=== PATIENT | male | born 1950 | race Caucasian/White ===

== ENCOUNTER 2016-10-30 20:58 | Inpatient (IN) | payer MEDICARE, OTHER ==
--- NOTE | 2016-10-30 22:05 | PDOC ---
Attending Attestation - HPI HPI: 10/30/16 22:47 Patient is a 66 y/o M with a PMHx of diabetes, hepatitis C, liver CA, IV drug use (on Methadone) presents to the ED via EMS s/p fall. Patient reports he was at home when he had a mechanical fall. Neighbor heard him crying for help and called 911. Patient reports right hip pain. He reports for the past 3 days he has been ambulating with his walker and walking to his Methadone clinic. Patient is a poor historian. He does not know where his recent hip surgery was done. He does not know the name of his PCP. <Ladan Gabriel Corrie - Last Filed: 10/30/16 22:46> - Resident Resident Name: Moni Carrasquillo - ED Attending Attestation I have performed the following: I have examined & evaluated the patient, The case was reviewed & discussed with the resident, I agree w/resident's findings & plan, Exceptions are as noted - Physicial Exam PE: GENERAL: Awake, alert, oriented, in no acute distress. +Coarse tremors to the hands B/L. Cachectic. HEAD: No signs of trauma EYES: PERRLA, EOMI, sclera anicteric, conjunctiva clear ENT: Auricles normal inspection, hearing grossly normal, nares patent, oropharynx clear without exudates. Dry mucosa NECK: Normal ROM, supple, no lymphadenopathy, JVD, or masses LUNGS: Breath sounds equal, clear to auscultation bilaterally. No wheezes, and no crackles HEART: Regular rate and rhythm, normal S1 and S2, no murmurs, rubs or gallops ABDOMEN: Soft, nontender, normoactive bowel sounds. No guarding, no rebound. No masses EXTREMITIES: R hip with well-healed lateral surgical scar. L foot s/p 4th toe amputation with erythema to the dorsum, open lesion with scant purulent drainage. Plantar surface with linear area of thickened skin and central opening , no drainage. No clubbing or cyanosis. No cords, tenderness. NEUROLOGICAL: Cranial nerves II through XII grossly intact. Moving all extremities. SKIN: Warm, Dry, normal turgor, no rashes. +Sacral decubitus ulcer with surrounding cellulitis. - Medical Decision Making Patient is extremely poor historian. He was able to tell where his methadone clinic is, but could not recall when/where he had hip and foot surgery, and could not name his primary care physician. He was getting his methadone for the past few days since leaving facility where he was staying (?? rehab facility possibly?), but missed his dose today. He appears cachectic, malnourished, chronically ill. He has cellulitis and drainage from the surgical site on the L 4th toe (which is apparently an older surgery). It is apparent that he did not have any wound care, as he was wearing dirty socks on arrival in ED. He also complains of severe pain and inability to lay on his back, likely due to decubitus ulcer. Will admit for IV abx for the skin infections. He will likely need SW evaluation, as he presented with hypoglycemia, likely has not been eating at home. Unclear what his home situation is or where he has insight into his own illness. Contacted [facility]- patient sees Dr. [facility] in [facility]. His last admission there was in July, likely not his most recent hospital admission, but unable to determine where else he may have been. <Ce Fagan - Last Filed: 10/31/16 01:28>
--- NOTE | 2016-10-30 22:29 | PDOC ---
History of Present Illness - General Chief Complaint: Pain Stated Complaint: FALL Time Seen by Provider: 10/30/16 21:14 History Source: Patient Exam Limitations: Clinical Condition (poor historian) - History of Present Illness Initial Comments: 66yo M with PMH of IDDM, hep C, liver ca, IVDA on methadone, presents c/o sacral pain s/p fall. Pt is a poor historian. Pt reports he fell twice today. He felt lightheaded/dizzy prior to falling both times. Pt lives alone and stated his aid did not come today. Pt reports non-radiating sacral pain, rated 7/10. He did not hit his head. Pt denies LOC. Pt reports he is s/p Right hip surgery 10 days ago (hospital where surgery occurred and type of surgery are not recalled). Pt missed his methadone today. PCP: Dr. Alexei Borges of [facility] 10/30/16 22:22 Associated Symptoms: denies: chest pain, cough, diaphoresis, fever/chills, headaches, nausea/vomiting, rash, shortness of breath, syncope Past History - Past Medical History Allergies/Adverse Reactions: Allergies Allergy/AdvReac Type Severity Reaction Status Date / Time chlorpromazine HCl Allergy Verified 10/30/16 21:09 [From Thorazine] Home Medications: Ambulatory Orders Clonazepam [Klonopin -] 0.5 mg PO BID 02/24/15 Insulin Aspart [Novolog] 0 unit SQ DAILY 02/24/15 Insulin Glargine,Hum.rec.anlog [Lantus (nf)] 10 units SQ AM 02/24/15 Cancer: Yes (liver) Diabetes: Yes (Neuropathy) Liver Disease: Yes (Hep C) Psychiatric Problems: Yes - Surgical History Appendectomy: Yes Orthopedic Surgery: Yes (Right hip surgery) - Psycho/Social/Smoking Cessation Hx Suicidal Ideation: No Smoking History: Current every day smoker Have you smoked in the past 12 months: Yes Number of Cigarettes Smoked Daily: 10 Information on smoking cessation initiated: No Hx Alcohol Use: No Drug/Substance Use Hx: No Substance Use Type: None Hx Substance Use Treatment: Yes Review of Systems - Review of Systems Able to Perform ROS?: Yes Is the patient limited Hebrew proficient: No Constitutional: No: Chills, Diaphoresis, Fever HEENTM: No: Recent change in vision, Ear Pain, Nose Pain, Nose Congestion, Throat Pain Respiratory: No: Cough, Shortness of Breath, Stridor, Wheezing, Hemoptysis Cardiac (ROS): No: Chest Pain, Edema, Irregular Heart Rate, Lightheadedness, Palpitations, Syncope, Chest Tightness ABD/GI: No: Abdominal Distended, Nausea, Rectal Bleeding, Vomiting : Yes: Incontinence (of bladder and bowel x 3-4 days). No: Dysuria, Hematuria Musculoskeletal: Yes: Back Pain (sacral pain) Integumentary: No: Bruising, Erythema, Rash Neurological: Yes: Tremors, Dizziness. No: Headache *Physical Exam - Vital Signs Last Vital Signs Temp Pulse Resp BP Pulse Ox 99.5 F 92 H 20 128/76 94 L 10/30/16 21:10 10/30/16 21:10 10/30/16 21:10 10/30/16 21:10 10/30/16 21:10 - Physical Exam General Appearance: Yes: Nourished, Appropriately Dressed, Disheveled HEENT: positive: EOMI, Normal Voice. negative: Pale Conjunctivae, Scleral Icterus (R), Scleral Icterus (L), Nasal Congestion, Rhinorrhea Neck: positive: Trachea midline, Supple Respiratory/Chest: positive: Lungs Clear, Normal Breath Sounds. negative: Respiratory Distress, Accessory Muscle Use Cardiovascular: positive: Regular Rhythm, Regular Rate, S1, S2. negative: Murmur Gastrointestinal/Abdominal: positive: Soft. negative: Distended, Guarding, Rebound, Tenderness Extremity: negative: Swelling, Calf Tenderness, Erythema Integumentary: positive: Dry, Warm, Other (Sacral decub [id number] with red tissue at periphery and slough in the middle. Left foot: opening at tip of 1st toe and skin breakdown at 4th toe amputation incision noted with purulent drainage.) Neurologic: positive: Alert, Disoriented. negative: Facial Droop, Numbness ED Treatment Course - LABORATORY CBC & Chemistry Diagram: 10/30/16 23:09 10/30/16 23:09 Medical Decision Making - Medical Decision Making 66yo M with PMH of IDDM, hep C, liver ca, IVDA on methadone, presents c/o sacral pain s/p fall. Pt is a poor historian. Pt presents with tremors likely 2/2 hx of hep C/encephalopathy and/or withdrawal as methadone was missed today. Several areas of skin breakdown noted on exam. Wound cultures sent for sacral decub and for Left foot 4th toe amputation incision site. Vancomycin and Zosyn given empirically Xray of Left foot CBC with diff, CMP, ammonia, blood cultures UA, urine cultures f/u wound cultures EKG 10/30/16 23:07 10/30/16 23:49 CBC with diff -> leukocytosis CMP -> elevated Cr and hypoglycemia (36) -> D50 IVpush ammonia -> wnl Pt should be admitted for cellulitis, hypoglycemia, infected sacral decub and infected surgical incision. [facility] 10/31/16 00:44 Pt appears more alert and oriented after D50. F/U poc glucose ordered. He c/o symptoms of withdrawal and pain. Morphine 4mg IVpush ordered. Pts of [facility] are admitted by Dr. Hung (not [facility]). Dr. Hung was contacted and accepted the adm. *DC/Admit/Observation/Transfer Diagnosis at time of Disposition: Cellulitis, Hypoglycemia - Discharge Dispostion Condition at time of disposition: Guarded Admit: Yes
[2016-10-30] MEDS ORDERED: PIPERACILLIN/TAZOB 3.375 GM 3.375 GM in DEXTROSE 5%-WATER - 50 ML IVPB ONE (22:47)
[2016-10-30] MEDS ORDERED: VANCOMYCIN 1,000 MG in DEXTROSE 5%-WATER - 250 ML IVPB ONE (22:47)
[2016-10-30 23:24] LABS: BASOPHIL 0.8 % (0-2.0); MCH 26.9 pg (25.7-33.7); MCHC 32.5 g/dl (32.0-35.9); MEAN CELL VOLUME 82.7 fl (80-96); MEAN PLT VOLUME 9.5 fl (7.5-11.1); NEUTROPHILS 78.2 % (42.8-82.8); PLATELET COUNT 189 K/MM3 (134-434); RDW 18.6 % (11.9-15.9); WHITE BLOOD COUNT 19.5 K/mm3 (4.0-10.0)
[2016-10-30 23:46] LABS: ALBUMIN 1.9 g/dl (3.4-5.0); ALK PHOS 693 U/L (45-117); ANION GAP 11 (8-16); BILIRUBIN,TOTAL 0.6 mg/dL (0.2-1.0); CALCIUM 8.6 mg/dL (8.5-10.1); CO2 29 mmol/L (21-32); CREATININE 1.7 mg/dL (0.7-1.3); SGOT/AST 104 U/L (15-37); SGPT/ALT 65 U/L (12-78); TOT PROT 7.1 g/dl (6.4-8.2)
[2016-10-30 23:47] LABS: GLUCOSE,RANDOM 36 mg/dL (74-106)
[2016-10-30] MEDS ORDERED: DEXTROSE 50%-WATER - 25 GM/50 ML VIAL IVPUSH ONE (23:47)
[2016-10-30] MEDS ORDERED: DEXTROSE 50%-WATER - 25 GM/50 ML VIAL ONE (23:51)
[2016-10-31] MEDS ORDERED: PIPERACILLIN/TAZOB 3.375 GM 50 ML IVPB ONE (00:21)
[2016-10-31] MEDS ORDERED: VANCOMYCIN 1 GRAM (PRE-DOCKED) 250 ML IVPB ONE (00:22)
[2016-10-31] MEDS ORDERED: morphine CARPU-JECT 4 MG/1 ML DISP.SYRIN IVPUSH ONE (00:44)
[2016-10-31] MEDS ORDERED: morphine CARPU-JECT 4 MG/1 ML DISP.SYRIN ONE (01:01)
[2016-10-31 01:33] LABS: URINE APPEARANCE SLCLOUDY; URINE BILIRUBIN NEGATIVE (NEGATIVE); URINE BLOOD 3+ (NEGATIVE); URINE COLOR YELLOW; URINE GLUCOSE (UA) NEGATIVE (NEGATIVE); URINE KETONE NEGATIVE (NEGATIVE); URINE NITRITE NEGATIVE (NEGATIVE); URINE UROBILINOGEN NEGATIVE mg/dL (0.2-1.0)
[2016-10-31 01:34] LABS: URINE LEUK ESTERASE 3+ (NEGATIVE); URINE PROTEIN 2+ (NEGATIVE)
[2016-10-31 01:36] LABS: URINE HYALINE CAST 1 /lpf; URINE RBC 7 /hpf (0-3); URINE WBC 2 /hpf (3-5)
[2016-10-31 04:34] VITALS: BMI 18.0
[2016-10-31] MEDS: INSULIN SLIDING SCALE (NOVOLOG) 1 VIAL SQ SCH ×4 (06:51→21:47)
[2016-10-31 08:53] LABS: CHOLESTEROL 122 mg/dL (50-200)
--- NOTE | 2016-10-31 09:23 | HP ---
Admitting History and Physical - Primary Care Physician PCP: Lani Hung - Admission Chief Complaint: ABD PAIN WITH HEMATUREA/BACK PAIN/WEAKNESS/S-P FALL WITH HYPOGLYCEMIA History of Present Illness: Patient is a 66 y/o M with a PMHx of diabetes, hepatitis C, liver CA, IV drug use (on Methadone) presents to the ED via EMS s/p fall. Patient reports he was at home when he had a mechanical fall. Neighbor heard him crying for help and called 911. Patient reports right hip pain. He reports for the past 3 days he has been ambulating with his walker and walking to his Methadone clinic. Patient is a poor historian. He does not know where his recent hip surgery was done. He does not History Source: Patient Limitations to Obtaining History: Clinical Condition - Past Medical History Pulmonary: Yes: Asthma Gastrointestinal: Yes: GERD Hepatobiliary: Yes: Hepatitis C Endocrine: Yes: Diabetes Mellitus - Smoking History Smoking history: Current every day smoker Have you smoked in the past 12 months: Yes Aproximately how many cigarettes per day: 10 - Alcohol/Substance Use Hx Alcohol Use: No Home Medications - Allergies Allergies/Adverse Reactions: Allergies Allergy/AdvReac Type Severity Reaction Status Date / Time chlorpromazine HCl Allergy Verified 10/30/16 21:09 [From Thorazine] - Home Medications Home Medications: Ambulatory Orders Clonazepam [Klonopin -] 0.5 mg PO BID 02/24/15 Insulin Aspart [Novolog] 0 unit SQ DAILY 02/24/15 Insulin Glargine,Hum.rec.anlog [Lantus (nf)] 10 units SQ AM 02/24/15 Review of Systems - Review of Systems Constitutional: reports: Weakness Eyes: reports: No Symptoms HENT: reports: No Symptoms Neck: reports: No Symptoms Cardiovascular: reports: No Symptoms Respiratory: reports: No Symptoms Genitourinary: reports: Hematuria Musculoskeletal: reports: Back Pain, Muscle Weakness Integumentary: reports: Rash Neurological: reports: Pre-Existing Deficit Endocrine: reports: Other Hematology/Lymphatic: reports: No Symptoms Psychiatric: reports: Anxiety Physical Examination Vital Signs: Vital Signs Temperature 98.3 F 10/31/16 01:08 Pulse Rate 74 10/31/16 01:59 Respiratory Rate 15 10/31/16 01:59 Blood Pressure 116/54 10/31/16 01:59 O2 Sat by Pulse Oximetry (%) 98 10/31/16 01:59 Constitutional: Yes: Mild Distress Eyes: Yes: WNL HENT: Yes: WNL Neck: Yes: WNL Cardiovascular: Yes: WNL Respiratory: Yes: WNL Gastrointestinal: Yes: Tenderness Renal/: Yes: Other Musculoskeletal: Yes: Back Pain, Muscle Weakness Extremities: Yes: WNL Edema: No Peripheral Pulses WNL: Yes Integumentary: Yes: Rash, Skin Tear Wound/Incision: Yes: Dressing Dry and Intact Neurological: Yes: Pre-Existing Deficit ...Motor Strength: LLE, RLE Psychiatric: Yes: Other Problem List - Problems (1) Cellulitis Code(s): L03.90 - CELLULITIS, UNSPECIFIED Qualifiers: Site of cellulitis: extremity Site of cellulitis of extremity: lower extremity (2) Hypoglycemia Code(s): E16.2 - HYPOGLYCEMIA, UNSPECIFIED (3) Dyspnea Code(s): R06.00 - DYSPNEA, UNSPECIFIED Qualifiers: Dyspnea type: unspecified Qualified Code(s): R06.00 - Dyspnea, unspecified (4) DMII (diabetes mellitus, type 2) Code(s): E11.9 - TYPE 2 DIABETES MELLITUS WITHOUT COMPLICATIONS Qualifiers: Diabetes mellitus complication status: with hypoglycemia (5) Hepatitis C Code(s): B19.20 - UNSPECIFIED VIRAL HEPATITIS C WITHOUT HEPATIC COMA Qualifiers: Viral hepatitis chronicity: chronic (6) Methadone dependence Code(s): F11.20 - OPIOID DEPENDENCE, UNCOMPLICATED Assessment/Plan CELLULITIS ON ABX ID CONSULT HEP C WILL NEED F/U OUTPATIENT WITH GASTROENTEROLOGY SONO BLADDER/RENAL FOR HEMATUREA METHADONE RESTARTED VERIFIED WITH METHADONE CLINIC 70MG DAILY LABS REVIEWED LEUKOCYTOSIS
--- NOTE | 2016-10-31 10:17 | CON.ID ---
Consult Consult Specialty:: INFECTIOUS DISEASE Reason for Consultation:: Leukocytosis - History of Present Illness Chief Complaint: weakness and generalized pain History of Present Illness: 66 y.o. male with Hepatitis C , ?Liver CA, IVDA on methadone, DM, hx of falls,s/ p Rt hip surgery and Lt 4th toe amputation presenting with weakness and pain, noted to have leukocytosis. He is a poor historian and can not provide details of his medical history and when surgeries were done. States he lives alone in an apartment. Currently with lower back pain. Denies fever/chills (temp mildly elevated in ER), abdominal pain, n/v, or diarrhea. States he has recently had urinary incontinence but no dysuria/hesitation. - History Source History Provided By: Patient Limitations to Obtaining History: Other (poor historian) - Past Medical History Pulmonary: Yes: Asthma Gastrointestinal: Yes: GERD Hepatobiliary: Yes: Hepatitis C Infectious Disease: Yes: Other (hepatitis C) Endocrine: Yes: Diabetes Mellitus - Past Surgical History Additional Surgical History: Rt hip surgery, Lt 4th toe amputation, Lt ankle fx with hardware - Alcohol/Substance Use Hx Alcohol Use: No - Smoking History Smoking history: Current every day smoker Have you smoked in the past 12 months: Yes Aproximately how many cigarettes per day: 10 - Social History Usual Living Arrangement: Alone Home Medications - Allergies Allergies/Adverse Reactions: Allergies Allergy/AdvReac Type Severity Reaction Status Date / Time chlorpromazine HCl Allergy Verified 10/30/16 21:09 [From Thorazine] - Home Medications Home Medications: Ambulatory Orders Clonazepam [Klonopin -] 0.5 mg PO BID 02/24/15 Insulin Aspart [Novolog] 0 unit SQ DAILY 02/24/15 Insulin Glargine,Hum.rec.anlog [Lantus (nf)] 10 units SQ AM 02/24/15 Review of Systems - Review of Systems Constitutional: reports: Weakness Eyes: reports: No Symptoms HENT: reports: No Symptoms Neck: reports: No Symptoms Cardiovascular: reports: No Symptoms Respiratory: reports: No Symptoms Gastrointestinal: reports: No Symptoms Genitourinary: reports: Other (occasional incontinence) Musculoskeletal: reports: Other (sacral pain) Integumentary: reports: Other (Sacral DU with erythema, no discharge) Neurological: reports: Weakness Hematology/Lymphatic: reports: No Symptoms Psychiatric: reports: No Symptoms Pain Intensity: 7 Physical Exam Vital Signs: Vital Signs Temperature 98.3 F 10/31/16 01:08 Pulse Rate 74 10/31/16 01:59 Respiratory Rate 15 10/31/16 01:59 Blood Pressure 116/54 10/31/16 01:59 O2 Sat by Pulse Oximetry (%) 98 10/31/16 01:59 Constitutional: Yes: Mild Distress, Other HENT: Yes: WNL Neck: Yes: WNL Cardiovascular: Yes: Regular Rate and Rhythm Respiratory: Yes: CTA Bilaterally Gastrointestinal: Yes: Normal Bowel Sounds, Soft Musculoskeletal: Yes: Back Pain (lower back) Integumentary: Yes: Other (Sacral DU approx 4x3 cm with surrounding erythema, pain) Wound/Incision: Yes: Other (Lt 4th toe amputation wound with mild discharge/ erythema Rt hips healed surgical wound, LLE scar) Neurological: Yes: Alert Psychiatric: Yes: WNL Labs: CBC, BMP 10/30/16 23:09 10/30/16 23:09 Imaging - Results X-ray: Report Reviewed (Lt foot) Problem List - Problems (1) Cellulitis Code(s): L03.90 - CELLULITIS, UNSPECIFIED Qualifiers: Site of cellulitis: extremity Site of cellulitis of extremity: lower extremity (2) DMII (diabetes mellitus, type 2) Code(s): E11.9 - TYPE 2 DIABETES MELLITUS WITHOUT COMPLICATIONS Qualifiers: Diabetes mellitus complication status: with hypoglycemia (3) Hepatitis C Code(s): B19.20 - UNSPECIFIED VIRAL HEPATITIS C WITHOUT HEPATIC COMA Qualifiers: Viral hepatitis chronicity: chronic (4) Methadone dependence Code(s): F11.20 - OPIOID DEPENDENCE, UNCOMPLICATED (5) Leukocytosis Code(s): D72.829 - ELEVATED WHITE BLOOD CELL COUNT, UNSPECIFIED Assessment/Plan Sacral DU with cellulitis Lt 4th toe amputation site possibly infected r/o OM Renal insufficiency Groin candidiasis - suggest continue Zosyn and IV Vancomycin empirically, Nystatin powder BID to groin - monitor wbc trend, renal function - f/u blood, urine, wound culture results - consider sacral xray
[2016-10-31] MEDS ORDERED: METHADONE HCL 40 MG DISPERSABLE TABLET ONE (11:23)
[2016-10-31] MEDS ORDERED: METHADONE HCL 10 MG TABLET ONE (11:23)
[2016-10-31] MEDS ORDERED: METHADONE 30 MG, METHADONE 40 MG PO ONE ×2 (11:30)
[2016-10-31] MEDS: ACETAMINOPHEN 325 MG TABLET (FP) PO PRN (12:59)
[2016-10-31] MEDS: clonazePAM 0.5 MG TABLET PO PRN (13:00)
[2016-10-31] MEDS ORDERED: PT OWN MED DRAWER 7, Y5N ONE ×2 (13:15→21:17)
[2016-10-31] MEDS: BACITRACIN 15 GM TUBE TOPICAL OINTMENT TP SCH (13:27)
[2016-10-31] MEDS: VANCOMYCIN 1 GRAM (PRE-DOCKED) 250 ML IVPB SCH ×2 (13:27→21:45)
[2016-10-31] MEDS: PIPERACILLIN/TAZOB 2.25 GM 2.25 GM in DEXTROSE 5%-WATER - 50 ML IVPB SCH ×2 (15:57→18:42)
[2016-10-31] MEDS ORDERED: INSULIN (NOVOLOG) ASPART 100 UNITS/ML 10ML VIAL ONE ×2 (16:53→21:18)
[2016-10-31] MEDS ORDERED: INSULIN (NOVOLOG) ASPART 100 UNITS/ML 10ML VIAL SQ ONE (17:15)
[2016-10-31 17:57] LABS: ALBUMIN 1.5 g/dl (3.4-5.0); ALK PHOS 586 U/L (45-117); ANION GAP 9 (8-16); BILIRUBIN,TOTAL 0.7 mg/dL (0.2-1.0); CALCIUM 7.5 mg/dL (8.5-10.1); CO2 28 mmol/L (21-32); CREATININE 1.8 mg/dL (0.7-1.3); SGOT/AST 111 U/L (15-37); SGPT/ALT 57 U/L (12-78); TOT PROT 5.7 g/dl (6.4-8.2)
[2016-10-31 18:06] LABS: GLUCOSE,RANDOM 393 mg/dL (74-106)
[2016-10-31] MEDS ORDERED: DEXTROSE 5%-WATER - 50 ML IVPB ONE (18:23)
[2016-10-31] MEDS ORDERED: PIPERACILLIN/TAZOBACTAM 2.25 GM VIAL IVPB ONE (18:23)
[2016-10-31] MEDS: SODIUM CHLORIDE 0.45% 1,000 ML IV SCH (20:07)
[2016-10-31] MEDS ORDERED: INSULIN DETEMIR 100 UNITS/ML MDV SQ SCH (22:00)
[2016-10-31] MEDS ORDERED: VANCOMYCIN 1,000 MG in DEXTROSE 5%-WATER - 250 ML IVPB SCH (22:00)
[2016-11-01] MEDS ORDERED: DEXTROSE 5%-WATER - 50 ML IVPB ONE ×3 (01:17→17:31)
[2016-11-01] MEDS ORDERED: PIPERACILLIN/TAZOBACTAM 2.25 GM VIAL IVPB ONE ×2 (01:17→09:48)
[2016-11-01] MEDS: PIPERACILLIN/TAZOB 2.25 GM 2.25 GM in DEXTROSE 5%-WATER - 50 ML IVPB SCH ×2 (01:31→10:17)
[2016-11-01] MEDS: SODIUM CHLORIDE 0.45% 1,000 ML IV SCH ×2 (04:00→20:00)
[2016-11-01] MEDS: INSULIN SLIDING SCALE (NOVOLOG) 1 VIAL SQ SCH ×5 (06:15→22:08)
[2016-11-01] MEDS: INSULIN DETEMIR 100 UNITS/ML MDV SQ SCH (06:48)
[2016-11-01 07:35] LABS: MCH 26.4 pg (25.7-33.7); MCHC 31.3 g/dl (32.0-35.9); MEAN CELL VOLUME 84.2 fl (80-96); MEAN PLT VOLUME 9.5 fl (7.5-11.1); PLATELET COUNT 164 K/MM3 (134-434); RDW 19.1 % (11.9-15.9); WHITE BLOOD COUNT 18.2 K/mm3 (4.0-10.0)
[2016-11-01 08:02] LABS: ALBUMIN 1.5 g/dl (3.4-5.0); ANION GAP 10 (8-16); CALCIUM 7.9 mg/dL (8.5-10.1); CO2 28 mmol/L (21-32)
[2016-11-01 08:06] LABS: ALK PHOS 579 U/L (45-117); BILIRUBIN,TOTAL 1.1 mg/dL (0.2-1.0); CREATININE 1.3 mg/dL (0.7-1.3); SGOT/AST 96 U/L (15-37); SGPT/ALT 54 U/L (12-78); TOT PROT 6.1 g/dl (6.4-8.2)
[2016-11-01 08:16] LABS: GLUCOSE,RANDOM 35 mg/dL (74-106)
[2016-11-01] MEDS ORDERED: METHADONE HCL 40 MG DISPERSABLE TABLET ONE (08:25)
[2016-11-01] MEDS ORDERED: METHADONE HCL 10 MG TABLET ONE (08:25)
[2016-11-01] MEDS: METHADONE 30 MG, METHADONE 40 MG PO SCH (08:29)
[2016-11-01] MEDS ORDERED: VALPROATE SODIUM 500 MG/5 ML VIAL IV SCH (10:00)
[2016-11-01] MEDS: NYSTATIN POWDER 100,000 UNITS/GM - 15 GM TOPICAL POWDER TP SCH (10:20)
[2016-11-01] MEDS: BACITRACIN 15 GM TUBE TOPICAL OINTMENT TP SCH (10:22)
--- NOTE | 2016-11-01 11:46 | CONSULT ---
Consult - Past Medical History Pulmonary: Yes: Asthma Gastrointestinal: Yes: GERD Hepatobiliary: Yes: Hepatitis C Infectious Disease: Yes: Other (hepatitis C) Endocrine: Yes: Diabetes Mellitus - Past Surgical History Additional Surgical History: Rt hip surgery, Lt 4th toe amputation, Lt ankle fx with hardware - Alcohol/Substance Use Hx Alcohol Use: No - Smoking History Smoking history: Current every day smoker Have you smoked in the past 12 months: Yes Aproximately how many cigarettes per day: 10 - Social History Usual Living Arrangement: Alone Home Medications - Allergies Allergies/Adverse Reactions: Allergies Allergy/AdvReac Type Severity Reaction Status Date / Time chlorpromazine HCl Allergy Verified 10/30/16 21:09 [From Thorazine] - Home Medications Home Medications: Ambulatory Orders Clonazepam [Klonopin -] 0.5 mg PO BID 02/24/15 Insulin Aspart [Novolog] 0 unit SQ DAILY 02/24/15 Insulin Glargine,Hum.rec.anlog [Lantus (nf)] 10 units SQ AM 02/24/15 Physical Exam Vital Signs: Vital Signs Temperature 99.1 F 11/01/16 09:58 Pulse Rate 75 11/01/16 09:58 Respiratory Rate 16 11/01/16 09:58 Blood Pressure 128/61 11/01/16 09:58 O2 Sat by Pulse Oximetry (%) 94 L 10/31/16 21:00 Labs: CBC, BMP 11/01/16 06:10 11/01/16 06:10 Assessment/Plan VAscular Surgery 6yo M with PMH of IDDM, hep C, liver ca, IVDA on methadone, presents c/o sacral pain s/p fall. Pt is a poor historian. Pt reports he fell twice today. He felt lightheaded/dizzy prior to falling both times. Pt lives alone and stated his aid did not come today. Pt reports non-radiating sacral pain, rated 7/10. He did not hit his head. Pt denies LOC. Pt reports he is s/p Right hip surgery 10 days ago (hospital where surgery occurred and type of surgery are not recalled). Pt missed his methadone today. PCP: Dr. Alexei Borges of [facility] 10/30/16 22:22 Associated Symptoms: denies: chest pain, cough, diaphoresis, fever/chills, headaches, nausea/vomiting, rash, shortness of breath, syncope Past History - Past Medical History Allergies/Adverse Reactions: Allergies Allergy/AdvReac Type Severity Reaction Status Date / Time chlorpromazine HCl Allergy Verified 10/30/16 21:09 [From Thorazine] Home Medications: Ambulatory Orders Clonazepam [Klonopin -] 0.5 mg PO BID 02/24/15 Insulin Aspart [Novolog] 0 unit SQ DAILY 02/24/15 Insulin Glargine,Hum.rec.anlog [Lantus (nf)] 10 units SQ AM 02/24/15 PE Head - NC/AT Lung - CTA Heart - RRR abd - soft,nt,nd ext - Left foot -- palpable DP and PT pulses. Wound at 4th toe amputation site. Clean , pink. A/P Left foot wound at amputation site. Santyl to area daily Pt with palpable pulses. No need for any other intervention. local wound care. Jaime owens DO
--- NOTE | 2016-11-01 11:51 | PN ---
Progress Note, Physician Chief Complaint: AWAKE ALERT BGM CHANGES NOTED - Current Medication List Current Medications: Active Medications Acetaminophen (Tylenol -) 650 mg PO Q8H PRN PRN Reason: FEVER OR PAIN Last Admin: 10/31/16 12:59 Dose: 650 mg Bacitracin (Bacitracin -) 1 applic TP DAILY COUNTS INCLUDE 234 BEDS AT THE [facility] Last Admin: 11/01/16 10:22 Dose: 1 appful Clonazepam (Klonopin -) 0.5 mg PO BID PRN PRN Reason: ANXIETY Last Admin: 10/31/16 13:00 Dose: 0.5 mg Collagenase (Santyl -) 1 applic TP DAILY COUNTS INCLUDE 234 BEDS AT THE [facility] Piperacillin Sod/Tazobactam (Sod 2.25 gm/ Dextrose) 50 mls @ 100 mls/hr IVPB Q8H-IV PRABHA PRN Reason: Protocol Last Admin: 11/01/16 10:17 Dose: 100 mls/hr Vancomycin HCl (Vancomycin (Pre-Docked)) 250 mls @ 250 mls/hr IVPB BID PRABHA PRN Reason: Protocol Last Admin: 10/31/16 21:45 Dose: 250 mls/hr Sodium Chloride (1/2 Normal Saline) 1,000 mls @ 125 mls/hr IV ASDIR COUNTS INCLUDE 234 BEDS AT THE [facility] Stop: 11/02/16 03:59 Last Admin: 10/31/16 20:07 Dose: 125 mls/hr Insulin Aspart (Novolog Vial Sliding Scale -) 1 vial SQ ACHS PRABHA PRN Reason: Protocol Last Admin: 11/01/16 06:15 Dose: Not Given Insulin Detemir (Levemir Vial) 15 units SQ AM COUNTS INCLUDE 234 BEDS AT THE [facility] Last Admin: 11/01/16 06:48 Dose: Not Given Methadone HCl 30 mg/ Methadone (HCl 40 mg) 70 mg PO DAILY@0600 PRABHA Stop: 11/02/16 07:44 Last Admin: 11/01/16 08:29 Dose: 70 mg Nystatin (Nystop Powder -) 1 applic TP DAILY COUNTS INCLUDE 234 BEDS AT THE [facility] Stop: 11/15/16 09:59 Last Admin: 11/01/16 10:20 Dose: 1 appful - Objective Vital Signs: Vital Signs Temperature 99.1 F 11/01/16 09:58 Pulse Rate 75 11/01/16 09:58 Respiratory Rate 16 11/01/16 09:58 Blood Pressure 128/61 11/01/16 09:58 O2 Sat by Pulse Oximetry (%) 94 L 10/31/16 21:00 Constitutional: Yes: No Distress Eyes: Yes: WNL HENT: Yes: WNL Neck: Yes: WNL Cardiovascular: Yes: WNL Respiratory: Yes: WNL Gastrointestinal: Yes: WNL Genitourinary: Yes: WNL Musculoskeletal: Yes: WNL Extremities: Yes: WNL Edema: No Peripheral Pulses WNL: Yes Integumentary: Yes: Erythema, Skin Tear, Venous Stasis Changes Wound/Incision: Yes: Dressing Dry and Intact Neurological: Yes: Pre-Existing Deficit, Unsteady Gait ...Motor Strength: LLE, RLE Psychiatric: Yes: Other Labs: CBC, BMP 11/01/16 06:10 11/01/16 06:10 Problem List - Problems (1) Cellulitis Code(s): L03.90 - CELLULITIS, UNSPECIFIED Qualifiers: Site of cellulitis: extremity Site of cellulitis of extremity: lower extremity (2) Hypoglycemia Code(s): E16.2 - HYPOGLYCEMIA, UNSPECIFIED (3) Dyspnea Code(s): R06.00 - DYSPNEA, UNSPECIFIED Qualifiers: Dyspnea type: unspecified Qualified Code(s): R06.00 - Dyspnea, unspecified (4) DMII (diabetes mellitus, type 2) Code(s): E11.9 - TYPE 2 DIABETES MELLITUS WITHOUT COMPLICATIONS Qualifiers: Diabetes mellitus complication status: with hypoglycemia (5) Hepatitis C Code(s): B19.20 - UNSPECIFIED VIRAL HEPATITIS C WITHOUT HEPATIC COMA Qualifiers: Viral hepatitis chronicity: chronic (6) Methadone dependence Code(s): F11.20 - OPIOID DEPENDENCE, UNCOMPLICATED Assessment/Plan IV ABX CONTIUED STOP [facility] CONSULT CALLED LABS REVIEWED SSI PO DIET TOLERATED WILL YONATHAN FROM [facility]
[2016-11-01] MEDS: VANCOMYCIN 1 GRAM (PRE-DOCKED) 250 ML IVPB SCH ×2 (12:01→21:34)
[2016-11-01] MEDS: COLLAGENASE CLOSTRIDIUM HIST. 30 GRAMS TUBE TP SCH (15:46)
--- NOTE | 2016-11-01 16:50 | PN ---
Progress Note, Physician History of Present Illness: Pt states he generally doesn't feel well. No specific complaints. - Current Medication List Current Medications: Active Medications Acetaminophen (Tylenol -) 650 mg PO Q8H PRN PRN Reason: FEVER OR PAIN Last Admin: 10/31/16 12:59 Dose: 650 mg Bacitracin (Bacitracin -) 1 applic TP DAILY PRABHA Last Admin: 11/01/16 10:22 Dose: 1 appful Clonazepam (Klonopin -) 0.5 mg PO BID PRN PRN Reason: ANXIETY Last Admin: 10/31/16 13:00 Dose: 0.5 mg Collagenase (Santyl -) 1 applic TP DAILY PRABHA Last Admin: 11/01/16 15:46 Dose: 1 applic Vancomycin HCl (Vancomycin (Pre-Docked)) 250 mls @ 250 mls/hr IVPB BID PRABHA PRN Reason: Protocol Last Admin: 11/01/16 12:01 Dose: 250 mls/hr Sodium Chloride (1/2 Normal Saline) 1,000 mls @ 125 mls/hr IV ASDIR [facility] Stop: 11/02/16 03:59 Last Admin: 10/31/16 20:07 Dose: 125 mls/hr Piperacillin Sod/Tazobactam (Sod 3.375 gm/ Dextrose) 50 mls @ 100 mls/hr IVPB Q8H-IV PRABHA PRN Reason: Protocol Insulin Aspart (Novolog Vial Sliding Scale -) 1 vial SQ ACHS PRABHA PRN Reason: Protocol Last Admin: 11/01/16 16:41 Dose: Not Given Insulin Detemir (Levemir Vial) 15 units SQ AM [facility] Last Admin: 11/01/16 06:48 Dose: Not Given Methadone HCl 30 mg/ Methadone (HCl 40 mg) 70 mg PO DAILY@0600 PRABHA Stop: 11/02/16 07:44 Last Admin: 11/01/16 08:29 Dose: 70 mg Nystatin (Nystop Powder -) 1 applic TP DAILY [facility] Stop: 11/15/16 09:59 Last Admin: 11/01/16 10:20 Dose: 1 appful - Objective Vital Signs: Vital Signs Temperature 98.4 F 11/01/16 13:34 Pulse Rate 81 11/01/16 13:34 Respiratory Rate 18 11/01/16 13:34 Blood Pressure 131/55 11/01/16 13:34 O2 Sat by Pulse Oximetry (%) 94 L 10/31/16 21:00 Constitutional: Yes: No Distress Neck: Yes: Supple Cardiovascular: Yes: Regular Rate and Rhythm Respiratory: Yes: CTA Bilaterally Gastrointestinal: Yes: Normal Bowel Sounds, Soft Genitourinary: Yes: Other (groin rash/erythema) Integumentary: Yes: Pressure Ulcer (Sacral DU with surrounding erythema), Other (Lt foot amp site with erythema/warmth) Wound/Incision: Yes: Dressing Dry and Intact Neurological: Yes: Alert Labs: CBC, BMP 11/01/16 06:10 11/01/16 06:10 Microbiology 10/30/16 22:45 Gram Stain - Final Decubiti Wound Culture - Preliminary Lactose Fermenting Neg Bacilli Yeast Like Organism 10/30/16 22:42 Gram Stain - Final Toe - Left Fourth Wound Culture - Preliminary Presumptive Ps Aeruginosa Streptococcus Species Yeast Like Organism Staphylococcus Species 10/31/16 01:00 Urine Culture - Final Urine - Urine Clean Catch Contaminated: Please Repeat 10/30/16 23:30 Blood Culture - Preliminary Blood - Peripheral Venous NO GROWTH OBTAINED AFTER 24 HOURS, INCUBATION TO CONTINUE FOR 4 DAYS. 10/30/16 23:37 Blood Culture - Preliminary Blood - Peripheral Venous NO GROWTH OBTAINED AFTER 24 HOURS, INCUBATION TO CONTINUE FOR 4 DAYS. Problem List - Problems (1) Cellulitis Code(s): L03.90 - CELLULITIS, UNSPECIFIED Qualifiers: Site of cellulitis: extremity Site of cellulitis of extremity: lower extremity (2) DMII (diabetes mellitus, type 2) Code(s): E11.9 - TYPE 2 DIABETES MELLITUS WITHOUT COMPLICATIONS Qualifiers: Diabetes mellitus complication status: with hypoglycemia (3) Hepatitis C Code(s): B19.20 - UNSPECIFIED VIRAL HEPATITIS C WITHOUT HEPATIC COMA Qualifiers: Viral hepatitis chronicity: chronic (4) Methadone dependence Code(s): F11.20 - OPIOID DEPENDENCE, UNCOMPLICATED (5) Leukocytosis Code(s): D72.829 - ELEVATED WHITE BLOOD CELL COUNT, UNSPECIFIED Assessment/Plan Sacral DU with cellulitis Lt 4th toe amputation site possibly infected r/o OM Renal insufficiency - slightly improved Groin candidiasis Leukocytosis - continue Zosyn and IV Vancomycin empirically, dose adjusted, nystatin powder - continue monitor wbc , renal function - f/u vancomycin level - f/u wound culture sensitivities, cont wound care/offloading - consider sacral xray
[2016-11-01] MEDS ORDERED: PIPERACILLIN/TAZOBACTAM 3.375 GM VIAL IVPB ONE (17:31)
[2016-11-01] MEDS: clonazePAM 0.5 MG TABLET PO PRN (18:11)
[2016-11-01] MEDS: PIPERACILLIN/TAZOB 3.375 GM 3.375 GM in DEXTROSE 5%-WATER - 50 ML IVPB SCH (18:48)
[2016-11-01] MEDS ORDERED: ONDANSETRON *ODT* 4 MG TABLET SL PRN (19:19)
[2016-11-01] MEDS ORDERED: INSULIN (NOVOLOG) ASPART 100 UNITS/ML 10ML VIAL ONE (21:12)
[2016-11-02] MEDS: PIPERACILLIN/TAZOB 3.375 GM 3.375 GM in DEXTROSE 5%-WATER - 50 ML IVPB SCH ×3 (01:32→17:33)
[2016-11-02] MEDS ORDERED: METHADONE HCL 10 MG TABLET ONE ×2 (05:58→16:29)
[2016-11-02] MEDS ORDERED: METHADONE HCL 40 MG DISPERSABLE TABLET ONE ×2 (05:59→16:29)
[2016-11-02] MEDS: INSULIN SLIDING SCALE (NOVOLOG) 1 VIAL SQ SCH ×4 (06:24→21:23)
[2016-11-02] MEDS: METHADONE 30 MG, METHADONE 40 MG PO SCH (06:24)
[2016-11-02] MEDS: INSULIN DETEMIR 100 UNITS/ML MDV SQ SCH (06:42)
[2016-11-02] MEDS ORDERED: DEXTROSE 5%-WATER - 50 ML IVPB ONE ×2 (09:30→17:10)
[2016-11-02] MEDS ORDERED: PIPERACILLIN/TAZOBACTAM 3.375 GM VIAL IVPB ONE ×2 (09:30→17:10)
[2016-11-02] MEDS: COLLAGENASE CLOSTRIDIUM HIST. 30 GRAMS TUBE TP SCH (09:57)
[2016-11-02] MEDS: NYSTATIN POWDER 100,000 UNITS/GM - 15 GM TOPICAL POWDER TP SCH (09:57)
[2016-11-02] MEDS: VANCOMYCIN 1 GRAM (PRE-DOCKED) 250 ML IVPB SCH ×3 (09:57→21:16)
[2016-11-02] MEDS: BACITRACIN 15 GM TUBE TOPICAL OINTMENT TP SCH (09:57)
[2016-11-02] MEDS: ACETAMINOPHEN 325 MG TABLET (FP) PO PRN (14:34)
[2016-11-02] MEDS: clonazePAM 0.5 MG TABLET PO PRN (14:38)
--- NOTE | 2016-11-02 15:04 | PN ---
Progress Note, Physician History of Present Illness: patient continues to feel weak no other issues wounds noted - Current Medication List Current Medications: Active Medications Acetaminophen (Tylenol -) 650 mg PO Q8H PRN PRN Reason: FEVER OR PAIN Last Admin: 11/02/16 14:34 Dose: 650 mg Bacitracin (Bacitracin -) 1 applic TP DAILY PRABHA Last Admin: 11/02/16 09:57 Dose: 1 appful Clonazepam (Klonopin -) 0.5 mg PO BID PRN PRN Reason: ANXIETY Last Admin: 11/02/16 14:38 Dose: 0.5 mg Collagenase (Santyl -) 1 applic TP DAILY PRABHA Last Admin: 11/02/16 09:57 Dose: 1 applic Vancomycin HCl (Vancomycin (Pre-Docked)) 250 mls @ 250 mls/hr IVPB BID PRABHA PRN Reason: Protocol Last Admin: 11/02/16 12:30 Dose: Not Given Piperacillin Sod/Tazobactam (Sod 3.375 gm/ Dextrose) 50 mls @ 100 mls/hr IVPB Q8H-IV PRABHA PRN Reason: Protocol Last Admin: 11/02/16 09:52 Dose: 100 mls/hr Insulin Aspart (Novolog Vial Sliding Scale -) 1 vial SQ ACHS PRABHA PRN Reason: Protocol Last Admin: 11/02/16 10:50 Dose: Not Given Insulin Detemir (Levemir Vial) 15 units SQ AM PRABHA Last Admin: 11/02/16 06:42 Dose: Not Given Nystatin (Nystop Powder -) 1 applic TP DAILY [facility] Stop: 11/15/16 09:59 Last Admin: 11/02/16 09:57 Dose: 1 appful Ondansetron HCl (Zofran Odt -) 4 mg SL Q6H PRN PRN Reason: NAUSEA AND VOMITING - Objective Vital Signs: Vital Signs Temperature 98.2 F 11/02/16 14:19 Pulse Rate 71 11/02/16 14:19 Respiratory Rate 18 11/02/16 14:19 Blood Pressure 132/77 11/02/16 14:19 O2 Sat by Pulse Oximetry (%) 96 11/02/16 09:00 Constitutional: Yes: No Distress, Calm Cardiovascular: Yes: Regular Rate and Rhythm Respiratory: Yes: Regular, CTA Bilaterally Gastrointestinal: Yes: Normal Bowel Sounds, Soft Extremities: Yes: Other (Yes: Other (groin rash/erythema)) Integumentary: Yes: Other ( Integumentary: Yes: Pressure Ulcer (Sacral DU with surrounding erythema), Other (Lt foot amp site with erythema/warmth)) Wound/Incision: Yes: Other ( Wound/Incision: Yes: Dressing Dry and Intact) Neurological: Yes: Alert, Oriented Psychiatric: Yes: Alert Labs: CBC, BMP 11/01/16 06:10 11/01/16 06:10 Assessment/Plan Problem List - Problems (1) Cellulitis Code(s): L03.90 - CELLULITIS, UNSPECIFIED Qualifiers: Site of cellulitis: extremity Site of cellulitis of extremity: lower extremity (2) DMII (diabetes mellitus, type 2) Code(s): E11.9 - TYPE 2 DIABETES MELLITUS WITHOUT COMPLICATIONS Qualifiers: Diabetes mellitus complication status: with hypoglycemia (3) Hepatitis C Code(s): B19.20 - UNSPECIFIED VIRAL HEPATITIS C WITHOUT HEPATIC COMA Qualifiers: Viral hepatitis chronicity: chronic (4) Methadone dependence Code(s): F11.20 - OPIOID DEPENDENCE, UNCOMPLICATED (5) Leukocytosis Code(s): D72.829 - ELEVATED WHITE BLOOD CELL COUNT, UNSPECIFIED plan continue abx will hold vanco for today recheck vanco level all cx results noted ordered a bone scan to r/o osteo
[2016-11-02] MEDS ORDERED: METHADONE HCL 40 MG DISPERSABLE TABLET PO SCH (16:15)
--- NOTE | 2016-11-02 16:16 | PN ---
Progress Note, Physician Chief Complaint: awake alert calm c/o leg pain - Current Medication List Current Medications: Active Medications Acetaminophen (Tylenol -) 650 mg PO Q8H PRN PRN Reason: FEVER OR PAIN Last Admin: 11/02/16 14:34 Dose: 650 mg Bacitracin (Bacitracin -) 1 applic TP DAILY [facility] Last Admin: 11/02/16 09:57 Dose: 1 appful Clonazepam (Klonopin -) 0.5 mg PO BID PRN PRN Reason: ANXIETY Last Admin: 11/02/16 14:38 Dose: 0.5 mg Collagenase (Santyl -) 1 applic TP DAILY [facility] Last Admin: 11/02/16 09:57 Dose: 1 applic Vancomycin HCl (Vancomycin (Pre-Docked)) 250 mls @ 250 mls/hr IVPB BID PRABHA PRN Reason: Protocol Last Admin: 11/02/16 12:30 Dose: Not Given Piperacillin Sod/Tazobactam (Sod 3.375 gm/ Dextrose) 50 mls @ 100 mls/hr IVPB Q8H-IV PRABHA PRN Reason: Protocol Last Admin: 11/02/16 09:52 Dose: 100 mls/hr Insulin Aspart (Novolog Vial Sliding Scale -) 1 vial SQ ACHS PRABHA PRN Reason: Protocol Last Admin: 11/02/16 10:50 Dose: Not Given Insulin Detemir (Levemir Vial) 15 units SQ AM [facility] Last Admin: 11/02/16 06:42 Dose: Not Given Methadone HCl (Dolophine -) 70 mg PO DAILY@0600 [facility] Nystatin (Nystop Powder -) 1 applic TP DAILY [facility] Stop: 11/15/16 09:59 Last Admin: 11/02/16 09:57 Dose: 1 appful Ondansetron HCl (Zofran Odt -) 4 mg SL Q6H PRN PRN Reason: NAUSEA AND VOMITING - Objective Vital Signs: Vital Signs Temperature 98.2 F 11/02/16 14:19 Pulse Rate 71 11/02/16 14:19 Respiratory Rate 18 11/02/16 14:19 Blood Pressure 132/77 11/02/16 14:19 O2 Sat by Pulse Oximetry (%) 96 11/02/16 09:00 Constitutional: Yes: Mild Distress Eyes: Yes: WNL HENT: Yes: WNL Neck: Yes: WNL Cardiovascular: Yes: WNL Respiratory: Yes: WNL Gastrointestinal: Yes: WNL Genitourinary: Yes: WNL Musculoskeletal: Yes: Muscle Weakness Extremities: Yes: Erythema Edema: No Peripheral Pulses WNL: Yes Integumentary: Yes: Pressure Ulcer, Venous Stasis Changes Wound/Incision: Yes: Dressing Dry and Intact Neurological: Yes: Unsteady Gait, Weakness ...Motor Strength: LLE, RLE Psychiatric: Yes: Other Labs: CBC, BMP 11/01/16 06:10 11/01/16 06:10 Problem List - Problems (1) Cellulitis Code(s): L03.90 - CELLULITIS, UNSPECIFIED Qualifiers: Site of cellulitis: extremity Site of cellulitis of extremity: lower extremity (2) Hypoglycemia Code(s): E16.2 - HYPOGLYCEMIA, UNSPECIFIED (3) Dyspnea Code(s): R06.00 - DYSPNEA, UNSPECIFIED Qualifiers: Dyspnea type: unspecified Qualified Code(s): R06.00 - Dyspnea, unspecified (4) DMII (diabetes mellitus, type 2) Code(s): E11.9 - TYPE 2 DIABETES MELLITUS WITHOUT COMPLICATIONS Qualifiers: Diabetes mellitus complication status: with hypoglycemia (5) Hepatitis C Code(s): B19.20 - UNSPECIFIED VIRAL HEPATITIS C WITHOUT HEPATIC COMA Qualifiers: Viral hepatitis chronicity: chronic (6) Methadone dependence Code(s): F11.20 - OPIOID DEPENDENCE, UNCOMPLICATED Assessment/Plan IV ABX CONTIUED STOP [facility] ENDOCRINE CONSULT CALLED LABS REVIEWED SSI PO DIET TOLERATED WILL YONATHAN FROM [facility] METHADONE 70MG DAILY
[2016-11-02] MEDS: METHADONE 40 MG, METHADONE 30 MG PO SCH (16:31)
[2016-11-02] MEDS: metFORMIN HCL 500 MG TABLET (FP) PO SCH (16:32)
--- NOTE | 2016-11-02 16:55 | EKG ---
Test Reason : Blood Pressure : / mmHG Vent. Rate : 092 BPM Atrial Rate : 092 BPM P-R Int : 000 ms QRS Dur : 076 ms QT Int : 470 ms P-R-T Axes : 000 -76 069 degrees QTc Int : 581 ms SINUS RHYTHM WITH PREMATURE SUPRAVENTRICULAR COMPLEXES LEFT AXIS DEVIATION CANNOT RULE OUT SEPTAL INFARCT , AGE UNDETERMINED ABNORMAL ECG WHEN COMPARED WITH ECG OF 05-JUL-2015 12:59, PREMATURE SUPRAVENTRICULAR COMPLEXES ARE NOW PRESENT T WAVE VARIATION Confirmed by MICA SANCHES MD ([id number]) on 11/02/2016 4:55:21 PM Referred By: Confirmed By:MICA SANCHES MD
[2016-11-02] MEDS ORDERED: INSULIN (NOVOLOG) ASPART 100 UNITS/ML 10ML VIAL ONE (17:10)
[2016-11-03] MEDS ORDERED: DEXTROSE 5%-WATER - 50 ML IVPB ONE ×3 (01:07→17:38)
[2016-11-03] MEDS ORDERED: PIPERACILLIN/TAZOBACTAM 3.375 GM VIAL IVPB ONE ×3 (01:07→17:37)
[2016-11-03] MEDS: PIPERACILLIN/TAZOB 3.375 GM 3.375 GM in DEXTROSE 5%-WATER - 50 ML IVPB SCH ×3 (01:14→17:46)
[2016-11-03] MEDS ORDERED: METHADONE HCL 40 MG DISPERSABLE TABLET ONE (05:40)
[2016-11-03] MEDS ORDERED: METHADONE HCL 10 MG TABLET ONE (05:40)
[2016-11-03] MEDS: INSULIN SLIDING SCALE (NOVOLOG) 1 VIAL SQ SCH ×4 (06:35→21:12)
[2016-11-03] MEDS: INSULIN DETEMIR 100 UNITS/ML MDV SQ SCH (06:35)
[2016-11-03] MEDS: metFORMIN HCL 500 MG TABLET (FP) PO SCH ×2 (06:36→17:49)
[2016-11-03] MEDS: METHADONE 40 MG, METHADONE 30 MG PO SCH (06:36)
[2016-11-03 08:12] LABS: ANION GAP 6 (8-16); CALCIUM 8.1 mg/dL (8.5-10.1); CO2 32 mmol/L (21-32); CREATININE 1.2 mg/dL (0.7-1.3); GLUCOSE,RANDOM 280 mg/dL (74-106)
[2016-11-03 08:15] LABS: MCH 26.6 pg (25.7-33.7); MCHC 31.8 g/dl (32.0-35.9); MEAN CELL VOLUME 83.6 fl (80-96); MEAN PLT VOLUME 9.5 fl (7.5-11.1); PLATELET COUNT 163 K/MM3 (134-434); RDW 19.6 % (11.9-15.9); WHITE BLOOD COUNT 8.4 K/mm3 (4.0-10.0)
[2016-11-03] MEDS ORDERED: PT OWN MED DRAWER 7, Y5N ONE (10:45)
[2016-11-03] MEDS: NYSTATIN POWDER 100,000 UNITS/GM - 15 GM TOPICAL POWDER TP SCH (10:54)
[2016-11-03] MEDS: COLLAGENASE CLOSTRIDIUM HIST. 30 GRAMS TUBE TP SCH (10:54)
[2016-11-03] MEDS: VANCOMYCIN 1 GRAM (PRE-DOCKED) 250 ML IVPB SCH ×2 (13:37→21:13)
--- NOTE | 2016-11-03 14:12 | PN ---
Progress Note, Physician History of Present Illness: patient refused bone scan patient currently in no distress - Current Medication List Current Medications: Active Medications Acetaminophen (Tylenol -) 650 mg PO Q8H PRN PRN Reason: FEVER OR PAIN Last Admin: 11/02/16 14:34 Dose: 650 mg Bacitracin (Bacitracin -) 1 applic TP DAILY [facility] Last Admin: 11/02/16 09:57 Dose: 1 appful Clonazepam (Klonopin -) 0.5 mg PO BID PRN PRN Reason: ANXIETY Last Admin: 11/02/16 14:38 Dose: 0.5 mg Collagenase (Santyl -) 1 applic TP DAILY [facility] Last Admin: 11/03/16 10:54 Dose: 1 applic Glipizide (Glucotrol -) 5 mg PO BID@0700,1630 REPLACED BY [facility] Vancomycin HCl (Vancomycin (Pre-Docked)) 250 mls @ 250 mls/hr IVPB BID PRABHA PRN Reason: Protocol Last Admin: 11/03/16 13:37 Dose: 250 mls/hr Piperacillin Sod/Tazobactam (Sod 3.375 gm/ Dextrose) 50 mls @ 100 mls/hr IVPB Q8H-IV PRABHA PRN Reason: Protocol Last Admin: 11/03/16 10:54 Dose: 100 mls/hr Insulin Aspart (Novolog Vial Sliding Scale -) 1 vial SQ ACHS PRABHA PRN Reason: Protocol Last Admin: 11/03/16 11:03 Dose: Not Given Insulin Detemir (Levemir Vial) 15 units SQ AM [facility] Last Admin: 11/03/16 06:35 Dose: 15 units Metformin HCl (Glucophage -) 500 mg PO BID@0700,1630 [facility]PL[facility] Last Admin: 11/03/16 06:36 Dose: 500 mg Methadone HCl 40 mg/ Methadone (HCl 30 mg) 70 mg PO DAILY@0600 [facility] Last Admin: 11/03/16 06:36 Dose: 70 mg Nystatin (Nystop Powder -) 1 applic TP DAILY [facility] Stop: 11/15/16 09:59 Last Admin: 11/03/16 10:54 Dose: 1 appful Ondansetron HCl (Zofran Odt -) 4 mg SL Q6H PRN PRN Reason: NAUSEA AND VOMITING - Objective Vital Signs: Vital Signs Temperature 98.5 F 11/03/16 08:55 Pulse Rate 70 11/03/16 08:55 Respiratory Rate 18 11/03/16 08:55 Blood Pressure 130/78 11/03/16 08:55 O2 Sat by Pulse Oximetry (%) 96 11/02/16 20:43 Constitutional: Yes: No Distress, Calm, Thin Cardiovascular: Yes: Regular Rate and Rhythm Respiratory: Yes: Regular, CTA Bilaterally Gastrointestinal: Yes: Normal Bowel Sounds, Soft Musculoskeletal: Yes: Other Extremities: Yes: Other Wound/Incision: Yes: Dressing Dry and Intact, Other Neurological: Yes: Alert, Oriented Psychiatric: Yes: Alert Labs: CBC, BMP 11/03/16 07:25 11/03/16 07:25 Assessment/Plan Problem List - Problems (1) Cellulitis Code(s): L03.90 - CELLULITIS, UNSPECIFIED Qualifiers: Site of cellulitis: extremity Site of cellulitis of extremity: lower extremity (2) DMII (diabetes mellitus, type 2) Code(s): E11.9 - TYPE 2 DIABETES MELLITUS WITHOUT COMPLICATIONS Qualifiers: Diabetes mellitus complication status: with hypoglycemia (3) Hepatitis C Code(s): B19.20 - UNSPECIFIED VIRAL HEPATITIS C WITHOUT HEPATIC COMA Qualifiers: Viral hepatitis chronicity: chronic (4) Methadone dependence Code(s): F11.20 - OPIOID DEPENDENCE, UNCOMPLICATED (5) Leukocytosis Code(s): D72.829 - ELEVATED WHITE BLOOD CELL COUNT, UNSPECIFIED plan continue abx wound care patients cx result noted patient has refused bone scan to see if he has osteo in that event we will give patient at least 2 weeks of abx he will need both abx for 2 weeks patient can get the abx in the nursing him if desired
--- NOTE | 2016-11-03 15:22 | PN ---
Progress Note, Physician Chief Complaint: AWAKE ALERT COMFORTABLE - Current Medication List Current Medications: Active Medications Acetaminophen (Tylenol -) 650 mg PO Q8H PRN PRN Reason: FEVER OR PAIN Last Admin: 11/02/16 14:34 Dose: 650 mg Bacitracin (Bacitracin -) 1 applic TP DAILY [facility] Last Admin: 11/02/16 09:57 Dose: 1 appful Clonazepam (Klonopin -) 0.5 mg PO BID PRN PRN Reason: ANXIETY Last Admin: 11/02/16 14:38 Dose: 0.5 mg Collagenase (Santyl -) 1 applic TP DAILY [facility] Last Admin: 11/03/16 10:54 Dose: 1 applic Glipizide (Glucotrol -) 5 mg PO BID@0700,1630 [facility] IV Flush (Picc Line Flush) 8 ml IVPUSH PRN PRN PRN Reason: Protocol Vancomycin HCl (Vancomycin (Pre-Docked)) 250 mls @ 250 mls/hr IVPB BID PRABHA PRN Reason: Protocol Last Admin: 11/03/16 13:37 Dose: 250 mls/hr Piperacillin Sod/Tazobactam (Sod 3.375 gm/ Dextrose) 50 mls @ 100 mls/hr IVPB Q8H-IV PRABHA PRN Reason: Protocol Last Admin: 11/03/16 10:54 Dose: 100 mls/hr Insulin Aspart (Novolog Vial Sliding Scale -) 1 vial SQ ACHS PRABHA PRN Reason: Protocol Last Admin: 11/03/16 11:03 Dose: Not Given Insulin Detemir (Levemir Vial) 15 units SQ AM [facility] Last Admin: 11/03/16 06:35 Dose: 15 units Metformin HCl (Glucophage -) 500 mg PO BID@0700,1630 [facility] Last Admin: 11/03/16 06:36 Dose: 500 mg Methadone HCl 40 mg/ Methadone (HCl 30 mg) 70 mg PO DAILY@0600 [facility] Last Admin: 11/03/16 06:36 Dose: 70 mg Nystatin (Nystop Powder -) 1 applic TP DAILY [facility] Stop: 11/15/16 09:59 Last Admin: 11/03/16 10:54 Dose: 1 appful Ondansetron HCl (Zofran Odt -) 4 mg SL Q6H PRN PRN Reason: NAUSEA AND VOMITING - Objective Vital Signs: Vital Signs Temperature 98.5 F 09/19/17 14:11 Pulse Rate 67 11/03/16 14:11 Respiratory Rate 18 11/03/16 14:11 Blood Pressure 118/57 11/03/16 14:11 O2 Sat by Pulse Oximetry (%) 96 11/02/16 20:43 Constitutional: Yes: Mild Distress Eyes: Yes: WNL HENT: Yes: WNL Neck: Yes: WNL Cardiovascular: Yes: WNL Respiratory: Yes: WNL Gastrointestinal: Yes: WNL Genitourinary: Yes: WNL Musculoskeletal: Yes: Muscle Weakness Extremities: Yes: Deformity Edema: Yes Edema: LLE: Trace, RLE: Trace Peripheral Pulses WNL: Yes Integumentary: Yes: Pressure Ulcer, Skin Tear, Venous Stasis Changes Wound/Incision: Yes: Dressing Dry and Intact, Reddened, Excoriated, Unapproximated Neurological: Yes: Pre-Existing Deficit ...Motor Strength: LLE, RLE Psychiatric: Yes: Other Labs: CBC, BMP 11/03/16 07:25 11/03/16 07:25 Problem List - Problems (1) Cellulitis Code(s): L03.90 - CELLULITIS, UNSPECIFIED Qualifiers: Site of cellulitis: extremity Site of cellulitis of extremity: lower extremity (2) Hypoglycemia Code(s): E16.2 - HYPOGLYCEMIA, UNSPECIFIED (3) Dyspnea Code(s): R06.00 - DYSPNEA, UNSPECIFIED Qualifiers: Dyspnea type: unspecified Qualified Code(s): R06.00 - Dyspnea, unspecified (4) DMII (diabetes mellitus, type 2) Code(s): E11.9 - TYPE 2 DIABETES MELLITUS WITHOUT COMPLICATIONS Qualifiers: Diabetes mellitus complication status: with hypoglycemia (5) Hepatitis C Code(s): B19.20 - UNSPECIFIED VIRAL HEPATITIS C WITHOUT HEPATIC COMA Qualifiers: Viral hepatitis chronicity: chronic (6) Methadone dependence Code(s): F11.20 - OPIOID DEPENDENCE, UNCOMPLICATED Assessment/Plan PICC LINE INSERTION DC PLANNING TOMORROW 14 DAYS IV ABX PER ID
--- NOTE | 2016-11-03 16:05 | PN ---
Progress Note (short form) - Note Progress Note: ADDENDUM DIAGNOSIS: SEVERE MALNUTRITION Problem List - Problems (1) Cellulitis Code(s): L03.90 - CELLULITIS, UNSPECIFIED Qualifiers: Site of cellulitis: extremity Site of cellulitis of extremity: lower extremity (2) Hypoglycemia Code(s): E16.2 - HYPOGLYCEMIA, UNSPECIFIED (3) Dyspnea Code(s): R06.00 - DYSPNEA, UNSPECIFIED Qualifiers: Dyspnea type: unspecified Qualified Code(s): R06.00 - Dyspnea, unspecified (4) DMII (diabetes mellitus, type 2) Code(s): E11.9 - TYPE 2 DIABETES MELLITUS WITHOUT COMPLICATIONS Qualifiers: Diabetes mellitus complication status: with hypoglycemia (5) Hepatitis C Code(s): B19.20 - UNSPECIFIED VIRAL HEPATITIS C WITHOUT HEPATIC COMA Qualifiers: Viral hepatitis chronicity: chronic (6) Methadone dependence Code(s): F11.20 - OPIOID DEPENDENCE, UNCOMPLICATED
[2016-11-03] MEDS ORDERED: INSULIN (NOVOLOG) ASPART 100 UNITS/ML 10ML VIAL ONE (17:35)
[2016-11-03] MEDS ORDERED: INSULIN DETEMIR 100 UNITS/ML MDV SQ ONE (17:35)
[2016-11-03] MEDS: AMINO ACIDS/PROTEIN HYDROLYS 30 ML LIQUID.PKT PO SCH (17:47)
[2016-11-03] MEDS: BACITRACIN 15 GM TUBE TOPICAL OINTMENT TP SCH (17:48)
[2016-11-03] MEDS: glipiZIDE 5 MG TABLET (FP) PO SCH (17:49)
[2016-11-04] MEDS ORDERED: DEXTROSE 5%-WATER - 50 ML IVPB ONE ×3 (00:44→17:46)
[2016-11-04] MEDS ORDERED: PIPERACILLIN/TAZOBACTAM 3.375 GM VIAL IVPB ONE ×3 (00:44→17:46)
[2016-11-04] MEDS: PIPERACILLIN/TAZOB 3.375 GM 3.375 GM in DEXTROSE 5%-WATER - 50 ML IVPB SCH ×3 (01:11→18:07)
[2016-11-04] MEDS ORDERED: METHADONE HCL 10 MG TABLET ONE (05:50)
[2016-11-04] MEDS ORDERED: METHADONE HCL 40 MG DISPERSABLE TABLET ONE (05:50)
[2016-11-04] MEDS: METHADONE 40 MG, METHADONE 30 MG PO SCH (05:54)
[2016-11-04] MEDS: INSULIN SLIDING SCALE (NOVOLOG) 1 VIAL SQ SCH ×4 (06:11→22:10)
[2016-11-04] MEDS: metFORMIN HCL 500 MG TABLET (FP) PO SCH ×2 (06:40→16:26)
[2016-11-04] MEDS: glipiZIDE 5 MG TABLET (FP) PO SCH ×2 (06:40→16:26)
[2016-11-04] MEDS: INSULIN DETEMIR 100 UNITS/ML MDV SQ SCH (06:43)
[2016-11-04] MEDS ORDERED: INSULIN (NOVOLOG) ASPART 100 UNITS/ML 10ML VIAL ONE (06:47)
--- NOTE | 2016-11-04 08:03 | DS ---
Physical Examination Vital Signs: Vital Signs Temperature 99.2 F 11/04/16 06:09 Pulse Rate 86 11/04/16 06:09 Respiratory Rate 18 11/04/16 06:09 Blood Pressure 133/52 11/04/16 06:09 O2 Sat by Pulse Oximetry (%) 95 11/03/16 21:00 Constitutional: Yes: Mild Distress Eyes: Yes: WNL HENT: Yes: WNL Neck: Yes: WNL Cardiovascular: Yes: WNL Respiratory: Yes: WNL Gastrointestinal: Yes: WNL Renal/: Yes: WNL Musculoskeletal: Yes: Muscle Weakness Extremities: Yes: Deformity Edema: Yes Peripheral Pulses WNL: Yes Integumentary: Yes: Pressure Ulcer, Skin Tear Wound/Incision: Yes: Dressing Dry and Intact Neurological: Yes: Pre-Existing Deficit, Unsteady Gait ...Motor Strength: LLE, RLE Psychiatric: Yes: Other Labs: CBC, BMP 11/03/16 07:25 11/03/16 07:25 Discharge Summary Reason For Visit: CELLULITIS,HYPOGLYCEMIA Current Active Problems Cellulitis (Acute) DMII (diabetes mellitus, type 2) (Acute) Hepatitis C (Acute) Hypoglycemia (Acute) Leukocytosis (Acute) Methadone dependence (Acute) Procedures: Principal: xrays Hospital Course: admitted leg ulcers and cellulitis, needs 2 weeks of abx for osteomyelitis, picc line placed, snf Condition: Guarded - Instructions Diet, Activity, Other Instructions: diabetic diet wound care santyl daily Disposition: HALFWAY FACILITY - Home Medications Comprehensive Discharge Medication List: Ambulatory Orders Clonazepam [Klonopin -] 0.5 mg PO BID 02/24/15 Insulin Aspart [Novolog] 0 unit SQ DAILY 02/24/15 Insulin Glargine,Hum.rec.anlog [Lantus (nf)] 10 units SQ AM 02/24/15 Acetaminophen [Tylenol .Regular Strength -] 650 mg PO Q8H PRN #0 tablet Amino Acids/Protein Hydrolys [Prosource No Carb Liquid Pkt] 30 ml PO BID@0800, 1730 packet 11/04/16 Bacitracin - [Bacitracin Topical Ointment -] 1 applic TP DAILY tube 11/04/16 Clonazepam [Klonopin -] 0.5 mg PO BID PRN #0 tablet MDD 2 11/04/16 Collagenase Clostridium Hist. [Santyl -] 1 applic TP DAILY tube 11/04/16 Glipizide [Glucotrol -] 5 mg PO BID@0700,1630 tablet 11/04/16 Insulin (Levemir) [Levemir Vial] 15 units SQ AM ml 11/04/16 Insulin Sliding Scale [Novolog Vial Sliding Scale -] 1 vial SQ ACHS units 11/04 Metformin HCl [Glucophage -] 500 mg PO BID@0700,1630 tablet 11/04/16 Methadone [Dolophine -] 70 mg PO DAILY@0600 tablet MDD 70 11/04/16 Methadone [Dolophine -] 70 mg PO DAILY@0600 tablet MDD 70 11/04/16 Nystatin Powder [Nystop Powder -] 1 applic TP DAILY applic 11/04/16 Picc Line Flush [Picc Line Flush -] 8 ml IVPUSH PRN PRN #0 ml 11/04/16 Piperacillin/Tazob 3.375 gm [Zosyn -] 3.375 gm IVPB Q8H-IV 14 Days 11/04/16 Vancomycin 1 Gram (Pre-Docked) [Vancomycin (Pre-Docked)] 250 ml IVPB BID #0 bag MDD 14 days 11/04/16
[2016-11-04] MEDS: AMINO ACIDS/PROTEIN HYDROLYS 30 ML LIQUID.PKT PO SCH ×2 (08:05→18:15)
[2016-11-04] MEDS ORDERED: PT OWN MED DRAWER 7, Y5N ONE ×3 (09:20→17:47)
[2016-11-04] MEDS: COLLAGENASE CLOSTRIDIUM HIST. 30 GRAMS TUBE TP SCH (09:42)
[2016-11-04] MEDS: NYSTATIN POWDER 100,000 UNITS/GM - 15 GM TOPICAL POWDER TP SCH (09:43)
[2016-11-04] MEDS: BACITRACIN 15 GM TUBE TOPICAL OINTMENT TP SCH (09:43)
[2016-11-04] MEDS: VANCOMYCIN 1 GRAM (PRE-DOCKED) 250 ML IVPB SCH (12:00)
[2016-11-04] MEDS: ACETAMINOPHEN 325 MG TABLET (FP) PO PRN (12:19)
--- NOTE | 2016-11-04 14:06 | CONSULT ---
Admitting History and Physical - Primary Care Physician PCP: Lani Hung - Admission History of Present Illness: 66yo M with PMH of IDDM, hep C, liver ca, IVDA on methadone, presented with c/o sacral pain s/p fall. Pt reports he is s/p Right hip surgery 10 days ago ( hospital where surgery occurred and type of surgery are not recalled). On methadone program. Per RD:"Severe malnutrition in context of chronic disease r/t decreased appetite, FTT, ? depression, hx of IV drug dependence as evidenced by 60 lbs weight loss in unspecified period of time; likely not meeting 75 % estimated needs > 1 month; moderate temporal wasting, inconsistent eating patterns Altered nutrition related labs- Glu r/t poor dietary control of BS, ? 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 Increased demand for nutrients r/t anabolic demands for wound healing as evidenced by presence of stg 3 pressure ulcer " SEVERE MALNUTRITION . Reported difficulty with PO intake on reg diet/thin liquids.Pt takes small bites of hamburger, sandwich ut spits it out. Poor po acceptance, except for coffee, per staff. Selected Entries 11/03/16 11/03/16 11/03/16 06:09 08:55 10:40 Breakfast 75% Lunch Supper Temperature 98.3 F 98.5 F 11/03/16 11/03/16 11/03/16 14:11 18:00 18:49 Breakfast Lunch 25% Supper 50% Temperature 98.5 F 98.2 F 11/03/16 11/04/16 11/04/16 20:39 06:09 09:07 Breakfast Lunch Supper Temperature 98.2 F 99.2 F 98.1 F 11/04/16 11/04/16 10:14 13:33 Breakfast 0 Lunch 25% Supper Temperature 98.2 F Laboratory Tests 11/03/16 07:25 WBC 8.4 D Very limited cooperation. History Source: Medical Record Limitations to Obtaining History: Clinical Condition, Poor Historian - Past Medical History Pulmonary: Yes: Asthma Gastrointestinal: Yes: GERD Hepatobiliary: Yes: Hepatitis C Infectious Disease: Yes: Other (hepatitis C) Endocrine: Yes: Diabetes Mellitus - Smoking History Smoking history: Current every day smoker Have you smoked in the past 12 months: Yes Aproximately how many cigarettes per day: 10 - Alcohol/Substance Use Hx Alcohol Use: No History - Admission Reason For Visit: CELLULITIS,HYPOGLYCEMIA - General Mental Status: Awake and Alert, Able to Follow Commands, Combative (verbally. Angry. Poor cooperaion.) Head/Neck Control: Good - Hearing Hearing: Functional Hearing: Normal Hearing Aide: No With Patient: No Speech Evaluation - Communication Primary Language: ANGOLAN Communication: Yes: Within Normal Limits Oral Expression Ability: Yes: No Impairment - Speech Production Able to Make Needs Known: Yes: WNL Intelligibility: Yes: WNL - Speech Characteristics Voice Loudness: Normal Voice Pitch: Yes: Normal Voice Phonatory-based Quality: Yes: Normal Speech Pattern: Normal Speech Clarity: < 100% Nasal Resonance: Normal Articulation: Yes: Precise - Language/Auditory Comprehension Follows: Yes: 1 Stage Simple Commands - Language/Verbal Expression Able to Communicate Wants and Needs: Yes: WNL Functional Communication Status: Yes: WNL - Swallow Evaluation/Bedside Assessment Current Nutritional Intake: Regular, Thin Liquids Oral Secretions: Yes: WFL Dentition: Yes: Adequate Facial Symmetry at Rest: Symmetrical Timing of Swallow: Delayed Coughing/Throat Clear: No Change in Voice: No Recommendations - Speech Evaluation, Impression/Plan Impression: Angry. Poor cooperation.Would not allow oral-motor assessment or accept solid trials.Accepted sips of glucerna with mildly delayed swallow and grimace. No cough or change in vocal quality.Denied Odynophagia and GERD.Limited oral assessment-no gross riley noted. - Disposition Discharge to: [facility] Facility - Dysphagia Impressions/Plan Dysphagia Impressions: Ongoing Evaluation, Refused PO Trials *Silent aspiration: cannot be R/O at bedside Recommendations: Modified Barium Swallow (as out pt if difficulty persists.) - Recommendations Diet Consistency: Dysphagia Whole, Other (chopped meat.) Liquids: Thin Liquids Supplement: Glucerna
--- NOTE | 2016-11-04 15:27 | PN ---
Progress Note, Physician History of Present Illness: patient stable no new issues patient got a picc line placed failure to thrive - Current Medication List Current Medications: Active Medications Acetaminophen (Tylenol -) 650 mg PO Q8H PRN PRN Reason: FEVER OR PAIN Last Admin: 11/04/16 12:19 Dose: 650 mg Amino Acids (Prosource No Carb Liquid Pkt) 30 ml PO BID@0800,1730 [facility] Last Admin: 11/04/16 08:05 Dose: 30 ml Bacitracin (Bacitracin -) 1 applic TP DAILY [facility] Last Admin: 11/04/16 09:43 Dose: 1 appful Clonazepam (Klonopin -) 0.5 mg PO BID PRN PRN Reason: ANXIETY Last Admin: 11/02/16 14:38 Dose: 0.5 mg Collagenase (Santyl -) 1 applic TP DAILY [facility] Last Admin: 11/04/16 09:42 Dose: 1 applic Glipizide (Glucotrol -) 5 mg PO BID@0700,1630 [facility] Last Admin: 11/04/16 06:40 Dose: 5 mg IV Flush (Picc Line Flush) 8 ml IVPUSH PRN PRN PRN Reason: Protocol Vancomycin HCl (Vancomycin (Pre-Docked)) 250 mls @ 250 mls/hr IVPB BID [facility] PRN Reason: Protocol Last Admin: 11/04/16 09:41 Dose: 250 mls/hr Piperacillin Sod/Tazobactam (Sod 3.375 gm/ Dextrose) 50 mls @ 100 mls/hr IVPB Q8H-IV [facility] PRN Reason: Protocol Last Admin: 11/04/16 09:42 Dose: 100 mls/hr Insulin Aspart (Novolog Vial Sliding Scale -) 1 vial SQ ACHS [facility] PRN Reason: Protocol Last Admin: 11/04/16 12:05 Dose: 2 units Insulin Detemir (Levemir Vial) 15 units SQ AM [facility] Last Admin: 11/04/16 06:43 Dose: 15 units Metformin HCl (Glucophage -) 500 mg PO BID@0700,1630 [facility] Last Admin: 11/04/16 06:40 Dose: 500 mg Methadone HCl 40 mg/ Methadone (HCl 30 mg) 70 mg PO DAILY@0600 [facility] Last Admin: 11/04/16 05:54 Dose: 70 mg Nystatin (Nystop Powder -) 1 applic TP DAILY [facility] Stop: 11/15/16 09:59 Last Admin: 11/04/16 09:43 Dose: 1 appful Ondansetron HCl (Zofran Odt -) 4 mg SL Q6H PRN PRN Reason: NAUSEA AND VOMITING Last Admin: 11/04/16 06:09 Dose: 4 mg - Objective Vital Signs: Vital Signs Temperature 98.2 F 11/04/16 13:33 Pulse Rate 69 11/04/16 13:33 Respiratory Rate 11/04/16 13:33 Blood Pressure 123/70 11/04/16 13:33 O2 Sat by Pulse Oximetry (%) 97 11/04/16 09:00 Constitutional: Yes: No Distress, Calm, Thin, Other (failure to thrive) Cardiovascular: Yes: Regular Rate and Rhythm Respiratory: Yes: Regular, CTA Bilaterally Gastrointestinal: Yes: Normal Bowel Sounds, Soft Musculoskeletal: Yes: Other Extremities: Yes: Other (no change in wound status) Wound/Incision: Yes: Dressing Dry and Intact, Other Neurological: Yes: Alert, Oriented Psychiatric: Yes: Alert Labs: CBC, BMP 11/03/16 07:25 11/03/16 07:25 Assessment/Plan Problem List - Problems (1) Cellulitis Code(s): L03.90 - CELLULITIS, UNSPECIFIED Qualifiers: Site of cellulitis: extremity Site of cellulitis of extremity: lower extremity (2) DMII (diabetes mellitus, type 2) Code(s): E11.9 - TYPE 2 DIABETES MELLITUS WITHOUT COMPLICATIONS Qualifiers: Diabetes mellitus complication status: with hypoglycemia (3) Hepatitis C Code(s): B19.20 - UNSPECIFIED VIRAL HEPATITIS C WITHOUT HEPATIC COMA Qualifiers: Viral hepatitis chronicity: chronic (4) Methadone dependence Code(s): F11.20 - OPIOID DEPENDENCE, UNCOMPLICATED (5) Leukocytosis Code(s): D72.829 - ELEVATED WHITE BLOOD CELL COUNT, UNSPECIFIED plan continue abx wound care cx results noted latest cx results are vre now patient cannot be given zyox as he is on methadone we will have to give dapto for 2 weeks will send cpk
[2016-11-04] MEDS ORDERED: DAPTOMYCIN 300 MG in SODIUM CHLORIDE 50 ML IVPB SCH (15:30)
[2016-11-04] MEDS: DAPTOMYCIN 300 MG in SODIUM CHLORIDE 50 ML IVPB SCH (17:13)
[2016-11-05] MEDS ORDERED: PIPERACILLIN/TAZOBACTAM 3.375 GM VIAL IVPB ONE ×3 (00:51→17:16)
[2016-11-05] MEDS ORDERED: DEXTROSE 5%-WATER - 50 ML IVPB ONE ×3 (00:52→17:16)
[2016-11-05] MEDS: PIPERACILLIN/TAZOB 3.375 GM 3.375 GM in DEXTROSE 5%-WATER - 50 ML IVPB SCH ×3 (01:05→17:54)
[2016-11-05] MEDS ORDERED: INSULIN (NOVOLOG) ASPART 100 UNITS/ML 10ML VIAL ONE (06:20)
[2016-11-05] MEDS ORDERED: METHADONE HCL 10 MG TABLET ONE (06:20)
[2016-11-05] MEDS ORDERED: METHADONE HCL 40 MG DISPERSABLE TABLET ONE (06:21)
[2016-11-05] MEDS: METHADONE 40 MG, METHADONE 30 MG PO SCH (06:31)
[2016-11-05] MEDS: INSULIN DETEMIR 100 UNITS/ML MDV SQ SCH (06:32)
[2016-11-05] MEDS: metFORMIN HCL 500 MG TABLET (FP) PO SCH ×2 (06:32→17:52)
[2016-11-05] MEDS: glipiZIDE 5 MG TABLET (FP) PO SCH ×2 (06:32→17:52)
[2016-11-05] MEDS: INSULIN SLIDING SCALE (NOVOLOG) 1 VIAL SQ SCH ×4 (06:34→22:10)
[2016-11-05] MEDS: AMINO ACIDS/PROTEIN HYDROLYS 30 ML LIQUID.PKT PO SCH ×2 (08:14→17:52)
--- NOTE | 2016-11-05 09:24 | PN ---
Progress Note, Physician Chief Complaint: EVENTS AND NOTES REVIEWED 1:1 ORDERED FOR DEPRESSION AND ANXIETY - Current Medication List Current Medications: Active Medications Acetaminophen (Tylenol -) 650 mg PO Q8H PRN PRN Reason: FEVER OR PAIN Last Admin: 11/04/16 12:19 Dose: 650 mg Amino Acids (Prosource No Carb Liquid Pkt) 30 ml PO BID@0800,1730 [facility] Last Admin: 11/05/16 08:14 Dose: Not Given Bacitracin (Bacitracin -) 1 applic TP DAILY [facility] Last Admin: 11/04/16 09:43 Dose: 1 appful Clonazepam (Klonopin -) 0.5 mg PO BID PRN PRN Reason: ANXIETY Last Admin: 11/02/16 14:38 Dose: 0.5 mg Collagenase (Santyl -) 1 applic TP DAILY [facility] Last Admin: 11/04/16 09:42 Dose: 1 applic Glipizide (Glucotrol -) 5 mg PO BID@0700,1630 [facility] Last Admin: 11/05/16 06:32 Dose: 5 mg IV Flush (Picc Line Flush) 8 ml IVPUSH PRN PRN PRN Reason: Protocol Piperacillin Sod/Tazobactam (Sod 3.375 gm/ Dextrose) 50 mls @ 100 mls/hr IVPB Q8H-IV [facility] PRN Reason: Protocol Last Admin: 11/05/16 01:05 Dose: Not Given Daptomycin 300 mg/ Sodium (Chloride) 50 mls @ 100 mls/hr IVPB Q24H [facility] PRN Reason: Protocol Last Admin: 11/04/16 17:13 Dose: 100 mls/hr Insulin Aspart (Novolog Vial Sliding Scale -) 1 vial SQ ACHS [facility] PRN Reason: Protocol Last Admin: 11/05/16 06:34 Dose: 2 units Insulin Detemir (Levemir Vial) 15 units SQ AM [facility] Last Admin: 11/05/16 06:32 Dose: 15 units Metformin HCl (Glucophage -) 500 mg PO BID@0700,1630 [facility] Last Admin: 11/05/16 06:32 Dose: 500 mg Methadone HCl 40 mg/ Methadone (HCl 30 mg) 70 mg PO DAILY@0600 [facility] Last Admin: 11/05/16 06:31 Dose: 70 mg Nystatin (Nystop Powder -) 1 applic TP DAILY [facility] Stop: 11/15/16 09:59 Last Admin: 11/04/16 09:43 Dose: 1 appful Ondansetron HCl (Zofran Odt -) 4 mg SL Q6H PRN PRN Reason: NAUSEA AND VOMITING Last Admin: 11/04/16 06:09 Dose: 4 mg - Objective Vital Signs: Vital Signs Temperature 98.1 F 11/05/16 08:45 Pulse Rate 73 11/05/16 08:45 Respiratory Rate 11/05/16 08:45 Blood Pressure 142/71 11/05/16 08:45 O2 Sat by Pulse Oximetry (%) 96 11/04/16 20:53 Constitutional: Yes: Mild Distress Eyes: Yes: WNL HENT: Yes: WNL Neck: Yes: WNL Cardiovascular: Yes: WNL Respiratory: Yes: WNL Gastrointestinal: Yes: WNL Genitourinary: Yes: WNL Musculoskeletal: Yes: Muscle Weakness Extremities: Yes: Erythema Edema: No Peripheral Pulses WNL: Yes Integumentary: Yes: Pressure Ulcer, Venous Stasis Changes Wound/Incision: Yes: Dressing Dry and Intact, Unapproximated Neurological: Yes: Pre-Existing Deficit ...Motor Strength: LLE, RLE Psychiatric: Yes: Suicidal Ideation, Other Labs: CBC, BMP 11/03/16 07:25 11/03/16 07:25 Problem List - Problems (1) Cellulitis Code(s): L03.90 - CELLULITIS, UNSPECIFIED Qualifiers: Site of cellulitis: extremity Site of cellulitis of extremity: lower extremity (2) Hypoglycemia Code(s): E16.2 - HYPOGLYCEMIA, UNSPECIFIED (3) Dyspnea Code(s): R06.00 - DYSPNEA, UNSPECIFIED Qualifiers: Dyspnea type: unspecified Qualified Code(s): R06.00 - Dyspnea, unspecified (4) DMII (diabetes mellitus, type 2) Code(s): E11.9 - TYPE 2 DIABETES MELLITUS WITHOUT COMPLICATIONS Qualifiers: Diabetes mellitus complication status: with hypoglycemia (5) Hepatitis C Code(s): B19.20 - UNSPECIFIED VIRAL HEPATITIS C WITHOUT HEPATIC COMA Qualifiers: Viral hepatitis chronicity: chronic (6) Methadone dependence Code(s): F11.20 - OPIOID DEPENDENCE, UNCOMPLICATED (7) Depression (emotion) Code(s): F32.9 - MAJOR DEPRESSIVE DISORDER, SINGLE EPISODE, UNSPECIFIED Assessment/Plan OBSERVATION 1:1 PSYCHIATRY EVAL REFUSED MEDICATIONS SUPPORT AND OBSERVATION
[2016-11-05] MEDS ORDERED: PT OWN MED DRAWER 7, Y5N ONE ×2 (09:37→17:16)
[2016-11-05] MEDS: BACITRACIN 15 GM TUBE TOPICAL OINTMENT TP SCH (09:42)
[2016-11-05] MEDS: NYSTATIN POWDER 100,000 UNITS/GM - 15 GM TOPICAL POWDER TP SCH (09:43)
[2016-11-05] MEDS: COLLAGENASE CLOSTRIDIUM HIST. 30 GRAMS TUBE TP SCH (09:43)
--- NOTE | 2016-11-05 14:29 | PN ---
Progress Note, Physician History of Present Illness: patient stable no new issues events noted patient on 1 to 1 - Current Medication List Current Medications: Active Medications Acetaminophen (Tylenol -) 650 mg PO Q8H PRN PRN Reason: FEVER OR PAIN Last Admin: 11/04/16 12:19 Dose: 650 mg Amino Acids (Prosource No Carb Liquid Pkt) 30 ml PO BID@0800,1730 [facility] Last Admin: 11/05/16 08:14 Dose: Not Given Bacitracin (Bacitracin -) 1 applic TP DAILY [facility] Last Admin: 11/05/16 09:42 Dose: 1 appful Clonazepam (Klonopin -) 0.5 mg PO BID PRN PRN Reason: ANXIETY Last Admin: 11/02/16 14:38 Dose: 0.5 mg Collagenase (Santyl -) 1 applic TP DAILY [facility] Last Admin: 11/05/16 09:43 Dose: 1 applic Glipizide (Glucotrol -) 5 mg PO BID@0700,1630 [facility] Last Admin: 11/05/16 06:32 Dose: 5 mg IV Flush (Picc Line Flush) 8 ml IVPUSH PRN PRN PRN Reason: Protocol Piperacillin Sod/Tazobactam (Sod 3.375 gm/ Dextrose) 50 mls @ 100 mls/hr IVPB Q8H-IV [facility] PRN Reason: Protocol Last Admin: 11/05/16 09:41 Dose: 100 mls/hr Daptomycin 300 mg/ Sodium (Chloride) 50 mls @ 100 mls/hr IVPB Q24H [facility] PRN Reason: Protocol Last Admin: 11/04/16 17:13 Dose: 100 mls/hr Insulin Aspart (Novolog Vial Sliding Scale -) 1 vial SQ ACHS [facility] PRN Reason: Protocol Last Admin: 11/05/16 11:48 Dose: Not Given Insulin Detemir (Levemir Vial) 15 units SQ AM [facility] Last Admin: 11/05/16 06:32 Dose: 15 units Metformin HCl (Glucophage -) 500 mg PO BID@0700,1630 [facility] Last Admin: 11/05/16 06:32 Dose: 500 mg Methadone HCl 40 mg/ Methadone (HCl 30 mg) 70 mg PO DAILY@0600 [facility] Last Admin: 11/05/16 06:31 Dose: 70 mg Nystatin (Nystop Powder -) 1 applic TP DAILY [facility] Stop: 11/15/16 09:59 Last Admin: 11/05/16 09:43 Dose: 1 appful Ondansetron HCl (Zofran Odt -) 4 mg SL Q6H PRN PRN Reason: NAUSEA AND VOMITING Last Admin: 11/04/16 06:09 Dose: 4 mg - Objective Vital Signs: Vital Signs Temperature 98.1 F 11/05/16 08:45 Pulse Rate 73 11/05/16 08:45 Respiratory Rate 11/05/16 08:45 Blood Pressure 142/71 11/05/16 08:45 O2 Sat by Pulse Oximetry (%) 96 11/04/16 20:53 Constitutional: Yes: No Distress, Calm Cardiovascular: Yes: Regular Rate and Rhythm Respiratory: Yes: Regular, CTA Bilaterally Gastrointestinal: Yes: Normal Bowel Sounds, Soft Musculoskeletal: Yes: Other Extremities: Yes: Other Wound/Incision: Yes: Dressing Dry and Intact Neurological: Yes: Alert, Oriented Psychiatric: Yes: Alert Labs: CBC, BMP 11/03/16 07:25 11/03/16 07:25 Assessment/Plan Problem List - Problems (1) Cellulitis Code(s): L03.90 - CELLULITIS, UNSPECIFIED Qualifiers: Site of cellulitis: extremity Site of cellulitis of extremity: lower extremity (2) DMII (diabetes mellitus, type 2) Code(s): E11.9 - TYPE 2 DIABETES MELLITUS WITHOUT COMPLICATIONS Qualifiers: Diabetes mellitus complication status: with hypoglycemia (3) Hepatitis C Code(s): B19.20 - UNSPECIFIED VIRAL HEPATITIS C WITHOUT HEPATIC COMA Qualifiers: Viral hepatitis chronicity: chronic (4) Methadone dependence Code(s): F11.20 - OPIOID DEPENDENCE, UNCOMPLICATED (5) Leukocytosis Code(s): D72.829 - ELEVATED WHITE BLOOD CELL COUNT, UNSPECIFIED plan continue abx wound care i to 1 psych eval
--- NOTE | 2016-11-05 14:41 | CON.PSY ---
Psychiatry Consult Chief Complaint: I dont remember saying that I wanted to jump out of the or kill myself. I never tried to kill my salf. I see apsych for anxiety and take Methadone. Symptoms: reports: Depressed Mood, Anxiety - Previous Psychiatric Treatment Outpatient: Less than 6 mos ago Inpatient: None - Previous Substance Abuse Treatment Outpatient: Less than 6 mos ago - Reason for Previous Treatment Reason for Previous Treatment: Anxiety or Panic Disorder, Prescription Drug - Current Medications Current Medications: Active Medications Acetaminophen (Tylenol -) 650 mg PO Q8H PRN PRN Reason: FEVER OR PAIN Last Admin: 11/04/16 12:19 Dose: 650 mg Amino Acids (Prosource No Carb Liquid Pkt) 30 ml PO BID@0800,1730 [facility] Last Admin: 11/05/16 08:14 Dose: Not Given Bacitracin (Bacitracin -) 1 applic TP DAILY [facility] Last Admin: 11/05/16 09:42 Dose: 1 appful Clonazepam (Klonopin -) 0.5 mg PO BID PRN PRN Reason: ANXIETY Last Admin: 11/02/16 14:38 Dose: 0.5 mg Collagenase (Santyl -) 1 applic TP DAILY [facility] Last Admin: 11/05/16 09:43 Dose: 1 applic Glipizide (Glucotrol -) 5 mg PO BID@0700,1630 [facility] Last Admin: 11/05/16 06:32 Dose: 5 mg IV Flush (Picc Line Flush) 8 ml IVPUSH PRN PRN PRN Reason: Protocol Piperacillin Sod/Tazobactam (Sod 3.375 gm/ Dextrose) 50 mls @ 100 mls/hr IVPB Q8H-IV [facility] PRN Reason: Protocol Last Admin: 11/05/16 09:41 Dose: 100 mls/hr Daptomycin 300 mg/ Sodium (Chloride) 50 mls @ 100 mls/hr IVPB Q24H [facility] PRN Reason: Protocol Last Admin: 11/04/16 17:13 Dose: 100 mls/hr Insulin Aspart (Novolog Vial Sliding Scale -) 1 vial SQ ACHS [facility] PRN Reason: Protocol Last Admin: 11/05/16 11:48 Dose: Not Given Insulin Detemir (Levemir Vial) 15 units SQ AM [facility] Last Admin: 11/05/16 06:32 Dose: 15 units Metformin HCl (Glucophage -) 500 mg PO BID@0700,1630 [facility] Last Admin: 11/05/16 06:32 Dose: 500 mg Methadone HCl 40 mg/ Methadone (HCl 30 mg) 70 mg PO DAILY@0600 [facility] Last Admin: 11/05/16 06:31 Dose: 70 mg Nystatin (Nystop Powder -) 1 applic TP DAILY [facility] Stop: 11/15/16 09:59 Last Admin: 11/05/16 09:43 Dose: 1 appful Ondansetron HCl (Zofran Odt -) 4 mg SL Q6H PRN PRN Reason: NAUSEA AND VOMITING Last Admin: 11/04/16 06:09 Dose: 4 mg - Allergies Allergies: Allergies Allergy/AdvReac Type Severity Reaction Status Date / Time chlorpromazine HCl Allergy Verified 10/30/16 21:09 [From Thorazine] - Current Living Status Usual Living Arrangement: Alone - Current Mental Status Evaluation Appearance: Disheveled Attitude: Cooperative - Affect Affect: Constrictive Appropriateness: Appropriate to Content - Mood Mood: Irritable - Speech/Language Expressive: Coherent - Psychomotor Activity Psychomotor Activity: Slowed - Thought Process Thought Process: Intact - Thought Content Hallucinations: Absent Delusions: Absent - Self Perception Self Perception: No Impairment - Cognition Attention: Alert Orientation: Time Memory, Immediate Recall: Intact Memory, Short Term: 2/3 Memory, Remote with Promptin/3 - Abstraction Proverb Interpretation: Intact Judgement: Minimally Impaired - Insight Insight: Intact - Impulse Control Impulse Control: Minimally Impaired - Suicidal Ideation Suicidal Ideation: No - Homicidal Ideation Homicidal Ideation: No Assessment/Plan 1) Patient is not acutely suicidal at this time. 2) D/C 1:1 3) make klonapin 0.5mg po bid standinmg.
[2016-11-05] MEDS ORDERED: clonazePAM 0.5 MG TABLET PO STA (14:43)
[2016-11-05] MEDS: clonazePAM 0.5 MG TABLET PO SCH ×2 (15:46→22:10)
[2016-11-05] MEDS: DAPTOMYCIN 300 MG in SODIUM CHLORIDE 50 ML IVPB SCH (18:35)
[2016-11-06] MEDS ORDERED: DEXTROSE 5%-WATER - 50 ML IVPB ONE ×3 (00:35→17:27)
[2016-11-06] MEDS ORDERED: PIPERACILLIN/TAZOBACTAM 3.375 GM VIAL IVPB ONE ×3 (00:35→17:27)
[2016-11-06] MEDS: PIPERACILLIN/TAZOB 3.375 GM 3.375 GM in DEXTROSE 5%-WATER - 50 ML IVPB SCH ×3 (01:19→17:31)
[2016-11-06] MEDS ORDERED: METHADONE HCL 10 MG TABLET ONE (06:09)
[2016-11-06] MEDS ORDERED: METHADONE HCL 40 MG DISPERSABLE TABLET ONE (06:09)
[2016-11-06] MEDS: METHADONE 40 MG, METHADONE 30 MG PO SCH (06:38)
[2016-11-06] MEDS: INSULIN SLIDING SCALE (NOVOLOG) 1 VIAL SQ SCH ×4 (06:38→23:15)
[2016-11-06] MEDS: metFORMIN HCL 500 MG TABLET (FP) PO SCH ×2 (06:39→17:31)
[2016-11-06] MEDS: glipiZIDE 5 MG TABLET (FP) PO SCH ×2 (06:39→17:25)
[2016-11-06] MEDS: INSULIN DETEMIR 100 UNITS/ML MDV SQ SCH (06:40)
[2016-11-06] MEDS ORDERED: INSULIN DETEMIR 100 UNITS/ML MDV SQ ONE (06:49)
[2016-11-06] MEDS: AMINO ACIDS/PROTEIN HYDROLYS 30 ML LIQUID.PKT PO SCH ×2 (07:49→17:31)
[2016-11-06] MEDS: clonazePAM 0.5 MG TABLET PO SCH ×2 (09:16→23:15)
[2016-11-06] MEDS: BACITRACIN 15 GM TUBE TOPICAL OINTMENT TP SCH (09:17)
[2016-11-06] MEDS: NYSTATIN POWDER 100,000 UNITS/GM - 15 GM TOPICAL POWDER TP SCH (09:17)
[2016-11-06] MEDS: COLLAGENASE CLOSTRIDIUM HIST. 30 GRAMS TUBE TP SCH (09:17)
--- NOTE | 2016-11-06 12:30 | PN ---
Progress Note, Physician History of Present Illness: patient stable no new issues psych note noted - Current Medication List Current Medications: Active Medications Acetaminophen (Tylenol -) 650 mg PO Q8H PRN PRN Reason: FEVER OR PAIN Last Admin: 11/04/16 12:19 Dose: 650 mg Amino Acids (Prosource No Carb Liquid Pkt) 30 ml PO BID@0800,1730 [facility] Last Admin: 11/06/16 07:49 Dose: Not Given Bacitracin (Bacitracin -) 1 applic TP DAILY [facility] Last Admin: 11/06/16 09:17 Dose: 1 appful Clonazepam (Klonopin -) 0.5 mg PO BID [facility] Last Admin: 11/06/16 09:16 Dose: 0.5 mg Collagenase (Santyl -) 1 applic TP DAILY [facility] Last Admin: 11/06/16 09:17 Dose: 1 applic Glipizide (Glucotrol -) 5 mg PO BID@0700,1630 [facility] Last Admin: 11/06/16 06:39 Dose: 5 mg IV Flush (Picc Line Flush) 8 ml IVPUSH PRN PRN PRN Reason: Protocol Piperacillin Sod/Tazobactam (Sod 3.375 gm/ Dextrose) 50 mls @ 100 mls/hr IVPB Q8H-IV [facility] PRN Reason: Protocol Last Admin: 11/06/16 09:14 Dose: 100 mls/hr Daptomycin 300 mg/ Sodium (Chloride) 50 mls @ 100 mls/hr IVPB Q24H [facility] PRN Reason: Protocol Last Admin: 11/05/16 18:35 Dose: 100 mls/hr Insulin Aspart (Novolog Vial Sliding Scale -) 1 vial SQ ACHS [facility] PRN Reason: Protocol Last Admin: 11/06/16 11:41 Dose: Not Given Insulin Detemir (Levemir Vial) 15 units SQ AM [facility] Last Admin: 11/06/16 06:40 Dose: 15 units Metformin HCl (Glucophage -) 500 mg PO BID@0700,1630 [facility] Last Admin: 11/06/16 06:39 Dose: 500 mg Methadone HCl 40 mg/ Methadone (HCl 30 mg) 70 mg PO DAILY@0600 [facility] Last Admin: 11/06/16 06:38 Dose: 70 mg Nystatin (Nystop Powder -) 1 applic TP DAILY [facility] Stop: 11/15/16 09:59 Last Admin: 11/06/16 09:17 Dose: 1 appful Ondansetron HCl (Zofran Odt -) 4 mg SL Q6H PRN PRN Reason: NAUSEA AND VOMITING Last Admin: 11/04/16 06:09 Dose: 4 mg - Objective Vital Signs: Vital Signs Temperature 98.2 F 11/06/16 08:45 Pulse Rate 66 11/06/16 08:45 Respiratory Rate 18 11/06/16 08:45 Blood Pressure 131/63 11/06/16 08:45 O2 Sat by Pulse Oximetry (%) 96 11/05/16 20:58 Constitutional: Yes: No Distress, Calm, Thin Cardiovascular: Yes: Regular Rate and Rhythm Respiratory: Yes: Regular, CTA Bilaterally Extremities: Yes: Other Wound/Incision: Yes: Dressing Dry and Intact Neurological: Yes: Alert, Oriented Psychiatric: Yes: Alert Labs: CBC, BMP 11/03/16 07:25 11/03/16 07:25 Assessment/Plan Problem List - Problems (1) Cellulitis Code(s): L03.90 - CELLULITIS, UNSPECIFIED Qualifiers: Site of cellulitis: extremity Site of cellulitis of extremity: lower extremity (2) DMII (diabetes mellitus, type 2) Code(s): E11.9 - TYPE 2 DIABETES MELLITUS WITHOUT COMPLICATIONS Qualifiers: Diabetes mellitus complication status: with hypoglycemia (3) Hepatitis C Code(s): B19.20 - UNSPECIFIED VIRAL HEPATITIS C WITHOUT HEPATIC COMA Qualifiers: Viral hepatitis chronicity: chronic (4) Methadone dependence Code(s): F11.20 - OPIOID DEPENDENCE, UNCOMPLICATED (5) Leukocytosis Code(s): D72.829 - ELEVATED WHITE BLOOD CELL COUNT, UNSPECIFIED plan continue abx wound care wbc normal patient stable
--- NOTE | 2016-11-06 14:20 | PN ---
Progress Note, Physician Chief Complaint: ASLEEP COMFORTABLE - Current Medication List Current Medications: Active Medications Acetaminophen (Tylenol -) 650 mg PO Q8H PRN PRN Reason: FEVER OR PAIN Last Admin: 11/04/16 12:19 Dose: 650 mg Amino Acids (Prosource No Carb Liquid Pkt) 30 ml PO BID@0800,1730 [facility] Last Admin: 11/06/16 07:49 Dose: Not Given Bacitracin (Bacitracin -) 1 applic TP DAILY [facility] Last Admin: 11/06/16 09:17 Dose: 1 appful Clonazepam (Klonopin -) 0.5 mg PO BID [facility] Last Admin: 11/06/16 09:16 Dose: 0.5 mg Collagenase (Santyl -) 1 applic TP DAILY [facility] Last Admin: 11/06/16 09:17 Dose: 1 applic Glipizide (Glucotrol -) 5 mg PO BID@0700,1630 [facility] Last Admin: 11/06/16 06:39 Dose: 5 mg IV Flush (Picc Line Flush) 8 ml IVPUSH PRN PRN PRN Reason: Protocol Piperacillin Sod/Tazobactam (Sod 3.375 gm/ Dextrose) 50 mls @ 100 mls/hr IVPB Q8H-IV [facility]HA PRN Reason: Protocol Last Admin: 11/06/16 09:14 Dose: 100 mls/hr Daptomycin 300 mg/ Sodium (Chloride) 50 mls @ 100 mls/hr IVPB Q24H [facility] PRN Reason: Protocol Last Admin: 11/05/16 18:35 Dose: 100 mls/hr Insulin Aspart (Novolog Vial Sliding Scale -) 1 vial SQ ACHS [facility] PRN Reason: Protocol Last Admin: 11/06/16 11:41 Dose: Not Given Insulin Detemir (Levemir Vial) 15 units SQ AM [facility] Last Admin: 11/06/16 06:40 Dose: 15 units Metformin HCl (Glucophage -) 500 mg PO BID@0700,1630 [facility] Last Admin: 11/06/16 06:39 Dose: 500 mg Methadone HCl 40 mg/ Methadone (HCl 30 mg) 70 mg PO DAILY@0600 [facility] Last Admin: 11/06/16 06:38 Dose: 70 mg Nystatin (Nystop Powder -) 1 applic TP DAILY [facility] Stop: 11/15/16 09:59 Last Admin: 11/06/16 09:17 Dose: 1 appful Ondansetron HCl (Zofran Odt -) 4 mg SL Q6H PRN PRN Reason: NAUSEA AND VOMITING Last Admin: 11/04/16 06:09 Dose: 4 mg - Objective Vital Signs: Vital Signs Temperature 98.2 F 11/06/16 08:45 Pulse Rate 66 11/06/16 08:45 Respiratory Rate 18 11/06/16 08:45 Blood Pressure 131/63 11/06/16 08:45 O2 Sat by Pulse Oximetry (%) 99 11/06/16 09:00 Constitutional: Yes: No Distress Eyes: Yes: WNL HENT: Yes: WNL Neck: Yes: WNL Cardiovascular: Yes: WNL Respiratory: Yes: WNL Gastrointestinal: Yes: WNL Musculoskeletal: Yes: Muscle Weakness Extremities: Yes: Deformity Edema: No Peripheral Pulses WNL: Yes Integumentary: Yes: Pressure Ulcer, Rash, Venous Stasis Changes Wound/Incision: Yes: Dressing Dry and Intact Neurological: Yes: Pre-Existing Deficit ...Motor Strength: LLE, RLE Psychiatric: Yes: Other Labs: CBC, BMP 11/03/16 07:25 11/03/16 07:25 Problem List - Problems (1) Cellulitis Code(s): L03.90 - CELLULITIS, UNSPECIFIED Qualifiers: Site of cellulitis: extremity Site of cellulitis of extremity: lower extremity (2) Hypoglycemia Code(s): E16.2 - HYPOGLYCEMIA, UNSPECIFIED (3) Dyspnea Code(s): R06.00 - DYSPNEA, UNSPECIFIED Qualifiers: Dyspnea type: unspecified Qualified Code(s): R06.00 - Dyspnea, unspecified (4) DMII (diabetes mellitus, type 2) Code(s): E11.9 - TYPE 2 DIABETES MELLITUS WITHOUT COMPLICATIONS Qualifiers: Diabetes mellitus complication status: with hypoglycemia (5) Hepatitis C Code(s): B19.20 - UNSPECIFIED VIRAL HEPATITIS C WITHOUT HEPATIC COMA Qualifiers: Viral hepatitis chronicity: chronic (6) Methadone dependence Code(s): F11.20 - OPIOID DEPENDENCE, UNCOMPLICATED (7) Depression (emotion) Code(s): F32.9 - MAJOR DEPRESSIVE DISORDER, SINGLE EPISODE, UNSPECIFIED Assessment/Plan ON DAPTOMYCIN IV DAY 3 OF 14 DEPRESSION STABLE NO SUICIDAL THOUGHTS OOB TO CHAIR
[2016-11-06] MEDS: DAPTOMYCIN 300 MG in SODIUM CHLORIDE 50 ML IVPB SCH (18:06)
[2016-11-06] MEDS ORDERED: INSULIN (NOVOLOG) ASPART 100 UNITS/ML 10ML VIAL ONE (21:34)
[2016-11-07] MEDS ORDERED: DEXTROSE 5%-WATER - 50 ML IVPB ONE ×3 (03:03→16:32)
[2016-11-07] MEDS ORDERED: PIPERACILLIN/TAZOBACTAM 3.375 GM VIAL IVPB ONE ×3 (03:03→16:32)
[2016-11-07] MEDS: PIPERACILLIN/TAZOB 3.375 GM 3.375 GM in DEXTROSE 5%-WATER - 50 ML IVPB SCH ×3 (03:05→17:19)
[2016-11-07] MEDS ORDERED: METHADONE HCL 10 MG TABLET ONE (06:44)
[2016-11-07] MEDS ORDERED: METHADONE HCL 40 MG DISPERSABLE TABLET ONE (06:44)
[2016-11-07] MEDS: METHADONE 40 MG, METHADONE 30 MG PO SCH (06:50)
[2016-11-07] MEDS: glipiZIDE 5 MG TABLET (FP) PO SCH ×2 (06:58→17:19)
[2016-11-07] MEDS: INSULIN SLIDING SCALE (NOVOLOG) 1 VIAL SQ SCH ×4 (06:58→21:44)
[2016-11-07] MEDS: metFORMIN HCL 500 MG TABLET (FP) PO SCH ×3 (06:58→17:19)
[2016-11-07] MEDS: INSULIN DETEMIR 100 UNITS/ML MDV SQ SCH (06:58)
--- NOTE | 2016-11-07 09:16 | PN ---
Progress Note, Physician - Current Medication List Current Medications: Active Medications Acetaminophen (Tylenol -) 650 mg PO Q8H PRN PRN Reason: FEVER OR PAIN Last Admin: 11/04/16 12:19 Dose: 650 mg Amino Acids (Prosource No Carb Liquid Pkt) 30 ml PO BID@0800,1730 [facility] Last Admin: 11/06/16 17:31 Dose: Not Given Bacitracin (Bacitracin -) 1 applic TP DAILY [facility] Last Admin: 11/06/16 09:17 Dose: 1 appful Clonazepam (Klonopin -) 0.5 mg PO BID [facility] Last Admin: 11/06/16 23:15 Dose: Not Given Collagenase (Santyl -) 1 applic TP DAILY [facility] Last Admin: 11/06/16 09:17 Dose: 1 applic Glipizide (Glucotrol -) 5 mg PO BID@0700,1630 [facility] Last Admin: 11/07/16 06:58 Dose: 5 mg IV Flush (Picc Line Flush) 8 ml IVPUSH PRN PRN PRN Reason: Protocol Piperacillin Sod/Tazobactam (Sod 3.375 gm/ Dextrose) 50 mls @ 100 mls/hr IVPB Q8H-IV [facility] PRN Reason: Protocol Last Admin: 11/07/16 03:05 Dose: Not Given Daptomycin 300 mg/ Sodium (Chloride) 50 mls @ 100 mls/hr IVPB Q24H [facility] PRN Reason: Protocol Last Admin: 11/06/16 18:06 Dose: 100 mls/hr Insulin Aspart (Novolog Vial Sliding Scale -) 1 vial SQ ACHS [facility] PRN Reason: Protocol Last Admin: 11/07/16 06:58 Dose: Not Given Insulin Detemir (Levemir Vial) 15 units SQ AM [facility] Last Admin: 11/07/16 06:58 Dose: 15 units Metformin HCl (Glucophage -) 500 mg PO BID@0700,1630 [facility] Last Admin: 11/07/16 06:58 Dose: 500 mg Methadone HCl 40 mg/ Methadone (HCl 30 mg) 70 mg PO DAILY@0600 [facility] Last Admin: 11/07/16 06:50 Dose: 70 mg Nystatin (Nystop Powder -) 1 applic TP DAILY [facility] Stop: 11/15/16 09:59 Last Admin: 11/06/16 09:17 Dose: 1 appful Ondansetron HCl (Zofran Odt -) 4 mg SL Q6H PRN PRN Reason: NAUSEA AND VOMITING Last Admin: 11/04/16 06:09 Dose: 4 mg - Objective Vital Signs: Vital Signs Temperature 97.5 F L 11/07/16 06:36 Pulse Rate 73 11/07/16 06:36 Respiratory Rate 18 11/07/16 06:36 Blood Pressure 118/71 11/07/16 06:36 O2 Sat by Pulse Oximetry (%) 99 11/06/16 09:00 Labs: CBC, BMP 11/03/16 07:25 11/03/16 07:25 Problem List - Problems (1) Cellulitis Assessment/Plan: ON DAPTOMYCIN IV DAY 3 OF Microbiology 10/30/16 22:45 Decubiti Gram Stain - Final 10/30/16 22:45 Decubiti Wound Culture - Final Klebsiella Pneumoniae Yeast Like Organism 10/30/16 22:42 Toe - Left Fourth Gram Stain - Final 10/30/16 22:42 Toe - Left Fourth Wound Culture - Final Pseudomonas Aeruginosa Vr Ec Faecium Yeast Like Organism Mr S Aureus Laboratory Tests 10/30/16 11/01/16 11/03/16 23:09 06:10 07:25 WBC 19.5 H D 18.2 H 8.4 D Code(s): L03.90 - CELLULITIS, UNSPECIFIED Qualifiers: Site of cellulitis: extremity Site of cellulitis of extremity: lower extremity (2) DMII (diabetes mellitus, type 2) Assessment/Plan: BGM Laboratory Tests 11/05/16 11/06/16 11/06/16 22:09 06:37 11:40 POC Glucometer 132 176 145 11/06/16 11/07/16 11/07/16 16:18 06:57 11:28 POC Glucometer 150 152 165 Code(s): E11.9 - TYPE 2 DIABETES MELLITUS WITHOUT COMPLICATIONS Qualifiers: Diabetes mellitus complication status: with hypoglycemia (3) Hepatitis C Assessment/Plan: Laboratory Tests 10/31/16 11/01/16 17:10 06:10 AST 111 H 96 H ALT 57 54 Alkaline Phosphatase 586 H 579 H Code(s): B19.20 - UNSPECIFIED VIRAL HEPATITIS C WITHOUT HEPATIC COMA Qualifiers: Viral hepatitis chronicity: chronic
[2016-11-07] MEDS: AMINO ACIDS/PROTEIN HYDROLYS 30 ML LIQUID.PKT PO SCH ×2 (09:21→17:19)
[2016-11-07] MEDS: clonazePAM 0.5 MG TABLET PO SCH ×2 (09:21→21:37)
[2016-11-07] MEDS: NYSTATIN POWDER 100,000 UNITS/GM - 15 GM TOPICAL POWDER TP SCH (09:23)
[2016-11-07] MEDS: COLLAGENASE CLOSTRIDIUM HIST. 30 GRAMS TUBE TP SCH (09:23)
[2016-11-07] MEDS: BACITRACIN 15 GM TUBE TOPICAL OINTMENT TP SCH (09:23)
[2016-11-07] MEDS: PICC LINE 8 ML FLUSH PROTOCOL IVPUSH PRN (10:00)
--- NOTE | 2016-11-07 12:20 | PN ---
Progress Note, Physician History of Present Illness: c/o of leg pain for u/s of the legs - Current Medication List Current Medications: Active Medications Acetaminophen (Tylenol -) 650 mg PO Q8H PRN PRN Reason: FEVER OR PAIN Last Admin: 11/04/16 12:19 Dose: 650 mg Amino Acids (Prosource No Carb Liquid Pkt) 30 ml PO BID@0800,1730 [facility] Last Admin: 11/07/16 09:21 Dose: Not Given Bacitracin (Bacitracin -) 1 applic TP DAILY [facility] Last Admin: 11/07/16 09:23 Dose: 1 appful Clonazepam (Klonopin -) 0.5 mg PO BID [facility] Last Admin: 11/07/16 09:21 Dose: 0.5 mg Collagenase (Santyl -) 1 applic TP DAILY [facility] Last Admin: 11/07/16 09:23 Dose: 1 applic Glipizide (Glucotrol -) 5 mg PO BID@0700,1630 [facility] Last Admin: 11/07/16 06:58 Dose: 5 mg IV Flush (Picc Line Flush) 8 ml IVPUSH PRN PRN PRN Reason: Protocol Piperacillin Sod/Tazobactam (Sod 3.375 gm/ Dextrose) 50 mls @ 100 mls/hr IVPB Q8H-IV [facility] PRN Reason: Protocol Last Admin: 11/07/16 09:20 Dose: 100 mls/hr Daptomycin 300 mg/ Sodium (Chloride) 50 mls @ 100 mls/hr IVPB Q24H [facility] PRN Reason: Protocol Last Admin: 11/06/16 18:06 Dose: 100 mls/hr Insulin Aspart (Novolog Vial Sliding Scale -) 1 vial SQ ACHS [facility] PRN Reason: Protocol Last Admin: 11/07/16 06:58 Dose: Not Given Insulin Detemir (Levemir Vial) 15 units SQ AM [facility] Last Admin: 11/07/16 06:58 Dose: 15 units Metformin HCl (Glucophage -) 500 mg PO BID@0700,1630 [facility] Last Admin: 11/07/16 06:58 Dose: 500 mg Methadone HCl 40 mg/ Methadone (HCl 30 mg) 70 mg PO DAILY@0600 [facility] Last Admin: 11/07/16 06:50 Dose: 70 mg Nystatin (Nystop Powder -) 1 applic TP DAILY [facility] Stop: 11/15/16 09:59 Last Admin: 11/07/16 09:23 Dose: 1 appful Ondansetron HCl (Zofran Odt -) 4 mg SL Q6H PRN PRN Reason: NAUSEA AND VOMITING Last Admin: 11/04/16 06:09 Dose: 4 mg - Objective Vital Signs: Vital Signs Temperature 97.9 F 11/07/16 09:19 Pulse Rate 62 11/07/16 09:19 Respiratory Rate 18 11/07/16 09:19 Blood Pressure 130/73 11/07/16 09:19 O2 Sat by Pulse Oximetry (%) 99 11/06/16 09:00 Constitutional: Yes: Calm, Mild Distress Eyes: Yes: Conjunctiva Clear Cardiovascular: Yes: Regular Rate and Rhythm Respiratory: Yes: Regular, CTA Bilaterally Gastrointestinal: Yes: Normal Bowel Sounds, Soft Musculoskeletal: Yes: Other Extremities: Yes: Other Wound/Incision: Yes: Dressing Dry and Intact Neurological: Yes: Alert, Oriented Psychiatric: Yes: Alert, Oriented Labs: CBC, BMP 11/03/16 07:25 11/03/16 07:25 Assessment/Plan Problem List - Problems (1) Cellulitis Code(s): L03.90 - CELLULITIS, UNSPECIFIED Qualifiers: Site of cellulitis: extremity Site of cellulitis of extremity: lower extremity (2) DMII (diabetes mellitus, type 2) Code(s): E11.9 - TYPE 2 DIABETES MELLITUS WITHOUT COMPLICATIONS Qualifiers: Diabetes mellitus complication status: with hypoglycemia (3) Hepatitis C Code(s): B19.20 - UNSPECIFIED VIRAL HEPATITIS C WITHOUT HEPATIC COMA Qualifiers: Viral hepatitis chronicity: chronic (4) Methadone dependence Code(s): F11.20 - OPIOID DEPENDENCE, UNCOMPLICATED (5) Leukocytosis Code(s): D72.829 - ELEVATED WHITE BLOOD CELL COUNT, UNSPECIFIED plan continue abx continue monitoring await for the results rest as per primary team
[2016-11-07] MEDS: DAPTOMYCIN 300 MG in SODIUM CHLORIDE 50 ML IVPB SCH (17:26)
[2016-11-07] MEDS ORDERED: INSULIN (NOVOLOG) ASPART 100 UNITS/ML 10ML VIAL ONE (21:42)
[2016-11-08] MEDS ORDERED: PIPERACILLIN/TAZOBACTAM 3.375 GM VIAL IVPB ONE ×3 (01:33→16:18)
[2016-11-08] MEDS ORDERED: DEXTROSE 5%-WATER - 50 ML IVPB ONE ×3 (01:33→16:19)
[2016-11-08] MEDS: PIPERACILLIN/TAZOB 3.375 GM 3.375 GM in DEXTROSE 5%-WATER - 50 ML IVPB SCH ×3 (05:29→17:31)
[2016-11-08] MEDS ORDERED: METHADONE HCL 10 MG TABLET ONE (06:03)
[2016-11-08] MEDS ORDERED: METHADONE HCL 40 MG DISPERSABLE TABLET ONE (06:03)
[2016-11-08] MEDS: METHADONE 40 MG, METHADONE 30 MG PO SCH (06:37)
[2016-11-08] MEDS: glipiZIDE 5 MG TABLET (FP) PO SCH ×2 (06:43→16:24)
[2016-11-08] MEDS: INSULIN DETEMIR 100 UNITS/ML MDV SQ SCH (06:43)
[2016-11-08] MEDS: metFORMIN HCL 500 MG TABLET (FP) PO SCH ×2 (06:43→16:24)
[2016-11-08] MEDS: INSULIN SLIDING SCALE (NOVOLOG) 1 VIAL SQ SCH ×4 (06:44→22:52)
[2016-11-08] MEDS: AMINO ACIDS/PROTEIN HYDROLYS 30 ML LIQUID.PKT PO SCH ×2 (08:31→17:26)
[2016-11-08] MEDS ORDERED: traMADol HCL 50 MG TABLET PO PRN (10:15)
--- NOTE | 2016-11-08 10:15 | PN ---
Progress Note, Physician - Current Medication List Current Medications: Active Medications Acetaminophen (Tylenol -) 650 mg PO Q8H PRN PRN Reason: FEVER OR PAIN Last Admin: 11/04/16 12:19 Dose: 650 mg Amino Acids (Prosource No Carb Liquid Pkt) 30 ml PO BID@0800,1730 [facility] Last Admin: 11/08/16 08:31 Dose: Not Given Bacitracin (Bacitracin -) 1 applic TP DAILY [facility] Last Admin: 11/07/16 09:23 Dose: 1 appful Clonazepam (Klonopin -) 0.5 mg PO BID [facility] Last Admin: 11/07/16 21:37 Dose: 0.5 mg Collagenase (Santyl -) 1 applic TP DAILY [facility] Last Admin: 11/07/16 09:23 Dose: 1 applic Glipizide (Glucotrol -) 5 mg PO BID@0700,1630 [facility] Last Admin: 11/08/16 06:43 Dose: 5 mg IV Flush (Picc Line Flush) 8 ml IVPUSH PRN PRN PRN Reason: Protocol Piperacillin Sod/Tazobactam (Sod 3.375 gm/ Dextrose) 50 mls @ 100 mls/hr IVPB Q8H-IV [facility] PRN Reason: Protocol Last Admin: 11/08/16 05:29 Dose: Not Given Daptomycin 300 mg/ Sodium (Chloride) 50 mls @ 100 mls/hr IVPB Q24H [facility] PRN Reason: Protocol Last Admin: 11/07/16 17:26 Dose: 100 mls/hr Insulin Aspart (Novolog Vial Sliding Scale -) 1 vial SQ ACHS [facility] PRN Reason: Protocol Last Admin: 11/08/16 06:44 Dose: Not Given Insulin Detemir (Levemir Vial) 15 units SQ AM [facility] Last Admin: 11/08/16 06:43 Dose: Not Given Metformin HCl (Glucophage -) 500 mg PO BID@0700,1630 [facility] Last Admin: 11/08/16 06:43 Dose: 500 mg Methadone HCl 40 mg/ Methadone (HCl 30 mg) 70 mg PO DAILY@0600 [facility] Last Admin: 11/08/16 06:37 Dose: 70 mg Nystatin (Nystop Powder -) 1 applic TP DAILY [facility] Stop: 11/15/16 09:59 Last Admin: 11/07/16 09:23 Dose: 1 appful Ondansetron HCl (Zofran Odt -) 4 mg SL Q6H PRN PRN Reason: NAUSEA AND VOMITING Last Admin: 11/04/16 06:09 Dose: 4 mg - Objective Vital Signs: Vital Signs Temperature 98.2 F 11/08/16 06:07 Pulse Rate 59 L 11/08/16 06:07 Respiratory Rate 30 H 11/08/16 06:07 Blood Pressure 138/74 11/08/16 06:07 O2 Sat by Pulse Oximetry (%) 98 11/07/16 09:00 Cardiovascular: Yes: Regular Rate and Rhythm Respiratory: Yes: Regular, CTA Bilaterally Gastrointestinal: Yes: Normal Bowel Sounds, Soft Labs: CBC, BMP 11/03/16 07:25 11/03/16 07:25 Problem List - Problems (1) Cellulitis Assessment/Plan: ON DAPTOMYCIN IV DAY 5 OF Microbiology 10/30/16 22:45 Decubiti Gram Stain - Final 10/30/16 22:45 Decubiti Wound Culture - Final Klebsiella Pneumoniae Yeast Like Organism 10/30/16 22:42 Toe - Left Fourth Gram Stain - Final 10/30/16 22:42 Toe - Left Fourth Wound Culture - Final Pseudomonas Aeruginosa Vr Ec Faecium Yeast Like Organism Mr S Aureus Laboratory Tests 10/30/16 11/01/16 11/03/16 23:09 06:10 07:25 WBC 19.5 H D 18.2 H 8.4 D Code(s): L03.90 - CELLULITIS, UNSPECIFIED Qualifiers: Site of cellulitis: extremity Site of cellulitis of extremity: lower extremity (2) DMII (diabetes mellitus, type 2) Assessment/Plan: BGM Laboratory Tests 11/05/16 11/06/16 11/06/16 22:09 06:37 11:40 POC Glucometer 132 176 145 11/06/16 11/07/16 11/07/16 16:18 06:57 11:28 POC Glucometer 150 152 165 Code(s): E11.9 - TYPE 2 DIABETES MELLITUS WITHOUT COMPLICATIONS Qualifiers: Diabetes mellitus complication status: with hypoglycemia (3) Hepatitis C Assessment/Plan: Laboratory Tests 10/31/16 11/01/16 17:10 06:10 AST 111 H 96 H ALT 57 54 Alkaline Phosphatase 586 H 579 H Code(s): B19.20 - UNSPECIFIED VIRAL HEPATITIS C WITHOUT HEPATIC COMA Qualifiers: Viral hepatitis chronicity: chronic
[2016-11-08] MEDS: COLLAGENASE CLOSTRIDIUM HIST. 30 GRAMS TUBE TP SCH (10:35)
[2016-11-08] MEDS: NYSTATIN POWDER 100,000 UNITS/GM - 15 GM TOPICAL POWDER TP SCH (10:36)
[2016-11-08] MEDS: clonazePAM 0.5 MG TABLET PO SCH ×2 (10:36→22:56)
[2016-11-08] MEDS: BACITRACIN 15 GM TUBE TOPICAL OINTMENT TP SCH (10:36)
[2016-11-08] MEDS: PICC LINE 8 ML FLUSH PROTOCOL IVPUSH PRN (11:06)
--- NOTE | 2016-11-08 12:26 | PN ---
Progress Note, Physician History of Present Illness: c/o of leg pain otherwise no issues - Current Medication List Current Medications: Active Medications Acetaminophen (Tylenol -) 650 mg PO Q8H PRN PRN Reason: FEVER OR PAIN Last Admin: 11/04/16 12:19 Dose: 650 mg Amino Acids (Prosource No Carb Liquid Pkt) 30 ml PO BID@0800,1730 [facility] Last Admin: 11/08/16 08:31 Dose: Not Given Bacitracin (Bacitracin -) 1 applic TP DAILY [facility] Last Admin: 11/08/16 10:36 Dose: 1 appful Clonazepam (Klonopin -) 0.5 mg PO BID [facility] Last Admin: 11/08/16 10:36 Dose: 0.5 mg Collagenase (Santyl -) 1 applic TP DAILY [facility] Last Admin: 11/08/16 10:35 Dose: 1 applic Glipizide (Glucotrol -) 5 mg PO BID@0700,1630 [facility] Last Admin: 11/08/16 06:43 Dose: 5 mg IV Flush (Picc Line Flush) 8 ml IVPUSH PRN PRN PRN Reason: Protocol Last Admin: 11/08/16 11:06 Dose: 8 ml Piperacillin Sod/Tazobactam (Sod 3.375 gm/ Dextrose) 50 mls @ 100 mls/hr IVPB Q8H-IV [facility] PRN Reason: Protocol Last Admin: 11/08/16 10:36 Dose: 100 mls/hr Daptomycin 300 mg/ Sodium (Chloride) 50 mls @ 100 mls/hr IVPB Q24H [facility] PRN Reason: Protocol Last Admin: 11/07/16 17:26 Dose: 100 mls/hr Insulin Aspart (Novolog Vial Sliding Scale -) 1 vial SQ ACHS [facility] PRN Reason: Protocol Last Admin: 11/08/16 11:08 Dose: Not Given Insulin Detemir (Levemir Vial) 15 units SQ AM [facility] Last Admin: 11/08/16 06:43 Dose: Not Given Metformin HCl (Glucophage -) 500 mg PO BID@0700,1630 [facility] Last Admin: 11/08/16 06:43 Dose: 500 mg Methadone HCl 40 mg/ Methadone (HCl 30 mg) 70 mg PO DAILY@0600 [facility] Last Admin: 11/08/16 06:37 Dose: 70 mg Nystatin (Nystop Powder -) 1 applic TP DAILY [facility] Stop: 11/15/16 09:59 Last Admin: 11/08/16 10:36 Dose: 1 appful Ondansetron HCl (Zofran Odt -) 4 mg SL Q6H PRN PRN Reason: NAUSEA AND VOMITING Last Admin: 11/04/16 06:09 Dose: 4 mg Tramadol HCl (Ultram -) 50 mg PO Q8H PRN PRN Reason: PAIN - Objective Vital Signs: Vital Signs Temperature 98.2 F 11/08/16 06:07 Pulse Rate 59 L 11/08/16 06:07 Respiratory Rate 30 H 11/08/16 06:07 Blood Pressure 138/74 11/08/16 06:07 O2 Sat by Pulse Oximetry (%) 98 11/07/16 09:00 Constitutional: Yes: No Distress, Calm, Thin Cardiovascular: Yes: Regular Rate and Rhythm Respiratory: Yes: Regular, CTA Bilaterally Gastrointestinal: Yes: Normal Bowel Sounds, Soft Musculoskeletal: Yes: Other Extremities: Yes: Other Wound/Incision: Yes: Dressing Dry and Intact Neurological: Yes: Alert, Oriented Psychiatric: Yes: Alert, Oriented Labs: CBC, BMP 11/03/16 07:25 11/03/16 07:25 - ....Imaging X-ray: Report Reviewed, Image Reviewed Assessment/Plan Problem List - Problems (1) Cellulitis Code(s): L03.90 - CELLULITIS, UNSPECIFIED Qualifiers: Site of cellulitis: extremity Site of cellulitis of extremity: lower extremity (2) DMII (diabetes mellitus, type 2) Code(s): E11.9 - TYPE 2 DIABETES MELLITUS WITHOUT COMPLICATIONS Qualifiers: Diabetes mellitus complication status: with hypoglycemia (3) Hepatitis C Code(s): B19.20 - UNSPECIFIED VIRAL HEPATITIS C WITHOUT HEPATIC COMA Qualifiers: Viral hepatitis chronicity: chronic (4) Methadone dependence Code(s): F11.20 - OPIOID DEPENDENCE, UNCOMPLICATED (5) Leukocytosis Code(s): D72.829 - ELEVATED WHITE BLOOD CELL COUNT, UNSPECIFIED plan continue abx continue monitoring
--- NOTE | 2016-11-08 15:58 | CON.NEURO ---
Consult - History of Present Illness History of Present Illness: 66 y/o M with a PMHx of diabetes, hepatitis C, liver CA, IV drug use (on Methadone) presents to the ED via EMS s/p fall. Patient reports he was at home when he had a mechanical fall. Neighbor heard him crying for help and called 911. Patient reports right hip pain. He reports for the past 3 days he has been ambulating with his walker and walking to his Methadone clinic. Patient is a poor historian. He does not know where his recent hip surgery was done. stats has had back pain since he got here, feels numbness behind his knees, states his hands are cold. ? BB issues. - History Source History Provided By: Patient - Past Medical History Pulmonary: Yes: Asthma Gastrointestinal: Yes: GERD Hepatobiliary: Yes: Hepatitis C Infectious Disease: Yes: Other (hepatitis C) Endocrine: Yes: Diabetes Mellitus - Past Surgical History Additional Surgical History: Rt hip surgery, Lt 4th toe amputation, Lt ankle fx with hardware - Alcohol/Substance Use Hx Alcohol Use: No - Smoking History Smoking history: Current every day smoker Have you smoked in the past 12 months: Yes Aproximately how many cigarettes per day: 10 - Social History Usual Living Arrangement: Alone Home Medications - Allergies Allergies/Adverse Reactions: Allergies Allergy/AdvReac Type Severity Reaction Status Date / Time chlorpromazine HCl Allergy Verified 10/30/16 21:09 [From Thorazine] - Home Medications Home Medications: Ambulatory Orders Clonazepam [Klonopin -] 0.5 mg PO BID 02/24/15 Insulin Aspart [Novolog] 0 unit SQ DAILY 02/24/15 Insulin Glargine,Hum.rec.anlog [Lantus (nf)] 10 units SQ AM 02/24/15 Acetaminophen [Tylenol .Regular Strength -] 650 mg PO Q8H PRN #0 tablet Amino Acids/Protein Hydrolys [Prosource No Carb Liquid Pkt] 30 ml PO BID@0800, 1730 packet 11/04/16 Bacitracin - [Bacitracin Topical Ointment -] 1 applic TP DAILY tube 11/04/16 Clonazepam [Klonopin -] 0.5 mg PO BID PRN #0 tablet MDD 2 11/04/16 Collagenase Clostridium Hist. [Santyl -] 1 applic TP DAILY tube 11/04/16 Glipizide [Glucotrol -] 5 mg PO BID@0700,1630 tablet 11/04/16 Insulin (Levemir) [Levemir Vial] 15 units SQ AM ml 11/04/16 Insulin Sliding Scale [Novolog Vial Sliding Scale -] 1 vial SQ ACHS units 11/04 Metformin HCl [Glucophage -] 500 mg PO BID@0700,1630 tablet 11/04/16 Methadone [Dolophine -] 70 mg PO DAILY@0600 tablet MDD 70 11/04/16 Methadone [Dolophine -] 70 mg PO DAILY@0600 tablet MDD 70 11/04/16 Nystatin Powder [Nystop Powder -] 1 applic TP DAILY applic 11/04/16 Picc Line Flush [Picc Line Flush -] 8 ml IVPUSH PRN PRN #0 ml 11/04/16 Piperacillin/Tazob 3.375 gm [Zosyn -] 3.375 gm IVPB Q8H-IV 14 Days 11/04/16 Vancomycin 1 Gram (Pre-Docked) [Vancomycin (Pre-Docked)] 250 ml IVPB BID #0 bag MDD 14 days 11/04/16 Physical Exam-Neuro Vital Signs: Vital Signs Temperature 98.2 F 11/08/16 06:07 Pulse Rate 59 L 11/08/16 06:07 Respiratory Rate 30 H 11/08/16 06:07 Blood Pressure 138/74 11/08/16 06:07 O2 Sat by Pulse Oximetry (%) 98 11/07/16 09:00 Constitutional: Yes: [place], Cachectic Labs: CBC, BMP 11/03/16 07:25 11/03/16 07:25 - Neuro Exam Level Of Consciousness: Yes: Alert (awake and alert, EOMI, nofacial, motorr UE 5 /5, LE with best effort 5/5, though limited by pain; Left foot swollen; no sesnory level, U reflexes 2+, Patellar (-), Achilles (-), plantars down, gait- in pain ) Imaging - Results X-ray: Report Reviewed Problem List - Problems (1) Cellulitis Code(s): L03.90 - CELLULITIS, UNSPECIFIED Qualifiers: Site of cellulitis: extremity Site of cellulitis of extremity: lower extremity (2) DMII (diabetes mellitus, type 2) Code(s): E11.9 - TYPE 2 DIABETES MELLITUS WITHOUT COMPLICATIONS Qualifiers: Diabetes mellitus complication status: with hypoglycemia (3) Hepatitis C Code(s): B19.20 - UNSPECIFIED VIRAL HEPATITIS C WITHOUT HEPATIC COMA Qualifiers: Viral hepatitis chronicity: chronic (4) Leukocytosis Code(s): D72.829 - ELEVATED WHITE BLOOD CELL COUNT, UNSPECIFIED (5) Methadone dependence Code(s): F11.20 - OPIOID DEPENDENCE, UNCOMPLICATED (6) Lumbar radicular syndrome Code(s): M54.16 - RADICULOPATHY, LUMBAR REGION Assessment/Plan 66 y/o M with a PMHx of diabetes, hepatitis C, liver CA, IV drug use (on Methadone) presents to the ED via EMS s/p fall. Patient reports he was at home when he had a mechanical fall. Neighbor heard him crying for help and called 911. Patient reports right hip pain. He reports for the past 3 days he has been ambulating with his walker and walking to his Methadone clinic. Patient is a poor historian. He does not know where his recent hip surgery was done. stats has had back pain since he got here, feels numbness behind his knees, states his hands are cold. ? BB issues. pain limited exam check MRI LS pine, check ESR r/o osteo Dr Marina to takeover in AM Dr Frazier
[2016-11-08] MEDS: DAPTOMYCIN 300 MG in SODIUM CHLORIDE 50 ML IVPB SCH (17:32)
[2016-11-08] MEDS ORDERED: PIPERACILLIN/TAZOB 3.375 GM 3.375 GM in DEXTROSE 5%-WATER - 50 ML IVPB SCH (19:15)
[2016-11-09] MEDS ORDERED: DEXTROSE 5%-WATER - 50 ML IVPB ONE ×3 (00:06→17:08)
[2016-11-09] MEDS ORDERED: PIPERACILLIN/TAZOBACTAM 3.375 GM VIAL IVPB ONE ×3 (00:06→17:08)
[2016-11-09] MEDS: PIPERACILLIN/TAZOB 3.375 GM 3.375 GM in DEXTROSE 5%-WATER - 50 ML IVPB SCH ×4 (01:56→17:23)
[2016-11-09] MEDS ORDERED: PIPERACILLIN/TAZOB 3.375 GM/50 ML PRE-DOCKED IVPB SCH (02:00)
[2016-11-09] MEDS ORDERED: METHADONE HCL 10 MG TABLET ONE (05:53)
[2016-11-09] MEDS ORDERED: METHADONE HCL 40 MG DISPERSABLE TABLET ONE (05:54)
[2016-11-09] MEDS: METHADONE 40 MG, METHADONE 30 MG PO SCH (06:23)
[2016-11-09] MEDS: glipiZIDE 5 MG TABLET (FP) PO SCH ×2 (06:32→17:17)
[2016-11-09] MEDS: metFORMIN HCL 500 MG TABLET (FP) PO SCH ×2 (06:32→17:16)
[2016-11-09] MEDS: INSULIN DETEMIR 100 UNITS/ML MDV SQ SCH (06:32)
[2016-11-09] MEDS: INSULIN SLIDING SCALE (NOVOLOG) 1 VIAL SQ SCH ×4 (06:33→21:58)
[2016-11-09] MEDS: AMINO ACIDS/PROTEIN HYDROLYS 30 ML LIQUID.PKT PO SCH ×3 (09:00→17:36)
[2016-11-09] MEDS: NYSTATIN POWDER 100,000 UNITS/GM - 15 GM TOPICAL POWDER TP SCH (09:11)
[2016-11-09] MEDS: BACITRACIN 15 GM TUBE TOPICAL OINTMENT TP SCH (09:11)
[2016-11-09] MEDS: clonazePAM 0.5 MG TABLET PO SCH ×2 (09:11→21:58)
[2016-11-09] MEDS: PICC LINE 8 ML FLUSH PROTOCOL IVPUSH PRN (09:12)
[2016-11-09] MEDS: COLLAGENASE CLOSTRIDIUM HIST. 30 GRAMS TUBE TP SCH (09:12)
--- NOTE | 2016-11-09 12:19 | PN ---
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
--- NOTE | 2016-11-09 12:40 | PN ---
Progress Note, Physician History of Present Illness: no new issues patient intermittently refusing medications - Current Medication List Current Medications: Active Medications Acetaminophen (Tylenol -) 650 mg PO Q8H PRN PRN Reason: FEVER OR PAIN Last Admin: 11/04/16 12:19 Dose: 650 mg Amino Acids (Prosource No Carb Liquid Pkt) 30 ml PO BID@0800,1730 [facility] Last Admin: 11/09/16 09:00 Dose: Not Given Bacitracin (Bacitracin -) 1 applic TP DAILY [facility] Last Admin: 11/09/16 09:11 Dose: 1 appful Clonazepam (Klonopin -) 0.5 mg PO BID [facility] Last Admin: 11/09/16 09:11 Dose: 0.5 mg Collagenase (Santyl -) 1 applic TP DAILY [facility] Last Admin: 11/09/16 09:12 Dose: 1 applic Glipizide (Glucotrol -) 5 mg PO BID@0700,1630 [facility] Last Admin: 11/09/16 06:32 Dose: 5 mg IV Flush (Picc Line Flush) 8 ml IVPUSH PRN PRN PRN Reason: Protocol Last Admin: 11/09/16 09:12 Dose: 8 ml Daptomycin 300 mg/ Sodium (Chloride) 50 mls @ 100 mls/hr IVPB Q24H [facility] PRN Reason: Protocol Last Admin: 11/08/16 17:32 Dose: 100 mls/hr Piperacillin Sod/Tazobactam (Sod 3.375 gm/ Dextrose) 50 mls @ 100 mls/hr IVPB Q8H-IV [facility]HA PRN Reason: Protocol Insulin Aspart (Novolog Vial Sliding Scale -) 1 vial SQ ACHS [facility] PRN Reason: Protocol Last Admin: 11/09/16 11:50 Dose: Not Given Insulin Detemir (Levemir Vial) 15 units SQ AM [facility] Last Admin: 11/09/16 06:32 Dose: 15 units Metformin HCl (Glucophage -) 500 mg PO BID@0700,1630 [facility] Last Admin: 11/09/16 06:32 Dose: 500 mg Methadone HCl 40 mg/ Methadone (HCl 30 mg) 70 mg PO DAILY@0600 [facility] Last Admin: 11/09/16 06:23 Dose: 70 mg Nystatin (Nystop Powder -) 1 applic TP DAILY [facility] Stop: 11/15/16 09:59 Last Admin: 11/09/16 09:11 Dose: 1 appful Ondansetron HCl (Zofran Odt -) 4 mg SL Q6H PRN PRN Reason: NAUSEA AND VOMITING Last Admin: 11/04/16 06:09 Dose: 4 mg Piperacillin Sod/Tazobactam Sod (Zosyn 3.375gm Ivpb (Pre-Docked)) 3.375 gm IVPB Q8H-IV [facility]HA Tramadol HCl (Ultram -) 50 mg PO Q8H PRN PRN Reason: PAIN - Objective Vital Signs: Vital Signs Temperature 97.2 F L 11/09/16 06:00 Pulse Rate 72 11/09/16 06:00 Respiratory Rate 20 11/09/16 06:00 Blood Pressure 134/69 11/09/16 06:00 O2 Sat by Pulse Oximetry (%) 95 11/08/16 21:00 Constitutional: Yes: No Distress, Thin Cardiovascular: Yes: Regular Rate and Rhythm Respiratory: Yes: Regular, CTA Bilaterally Gastrointestinal: Yes: Normal Bowel Sounds, Soft Musculoskeletal: Yes: Other Extremities: Yes: Other Neurological: Yes: Alert, Oriented Psychiatric: Yes: Alert Labs: CBC, BMP 11/03/16 07:25 11/03/16 07:25 Assessment/Plan Problem List - Problems (1) Cellulitis Code(s): L03.90 - CELLULITIS, UNSPECIFIED Qualifiers: Site of cellulitis: extremity Site of cellulitis of extremity: lower extremity (2) DMII (diabetes mellitus, type 2) Code(s): E11.9 - TYPE 2 DIABETES MELLITUS WITHOUT COMPLICATIONS Qualifiers: Diabetes mellitus complication status: with hypoglycemia (3) Hepatitis C Code(s): B19.20 - UNSPECIFIED VIRAL HEPATITIS C WITHOUT HEPATIC COMA Qualifiers: Viral hepatitis chronicity: chronic (4) Methadone dependence Code(s): F11.20 - OPIOID DEPENDENCE, UNCOMPLICATED (5) Leukocytosis Code(s): D72.829 - ELEVATED WHITE BLOOD CELL COUNT, UNSPECIFIED plan continue abx continue monitoring
--- NOTE | 2016-11-09 16:10 | PN ---
Progress Note, Physician Chief Complaint: AWAKE ALERT AGITATED BECAUSE HE WANTS TO GO HOME STATES HE MAY LOOSE HIS APARTMENT IF HE DOESN'T GO HOME TO PAY HIS RENT. - Current Medication List Current Medications: Active Medications Acetaminophen (Tylenol -) 650 mg PO Q8H PRN PRN Reason: FEVER OR PAIN Last Admin: 11/04/16 12:19 Dose: 650 mg Amino Acids (Prosource No Carb Liquid Pkt) 30 ml PO BID@0800,1730 [facility] Last Admin: 11/09/16 09:00 Dose: Not Given Bacitracin (Bacitracin -) 1 applic TP DAILY [facility] Last Admin: 11/09/16 09:11 Dose: 1 appful Clonazepam (Klonopin -) 0.5 mg PO BID [facility] Last Admin: 11/09/16 09:11 Dose: 0.5 mg Collagenase (Santyl -) 1 applic TP DAILY [facility] Last Admin: 11/09/16 09:12 Dose: 1 applic Glipizide (Glucotrol -) 5 mg PO BID@0700,1630 [facility] Last Admin: 11/09/16 06:32 Dose: 5 mg IV Flush (Picc Line Flush) 8 ml IVPUSH PRN PRN PRN Reason: Protocol Last Admin: 11/09/16 09:12 Dose: 8 ml Daptomycin 300 mg/ Sodium (Chloride) 50 mls @ 100 mls/hr IVPB Q24H [facility] PRN Reason: Protocol Last Admin: 11/08/16 17:32 Dose: 100 mls/hr Piperacillin Sod/Tazobactam (Sod 3.375 gm/ Dextrose) 50 mls @ 100 mls/hr IVPB Q8H-IV PR[facility]HA PRN Reason: Protocol Insulin Aspart (Novolog Vial Sliding Scale -) 1 vial SQ ACHS [facility] PRN Reason: Protocol Last Admin: 11/09/16 11:50 Dose: Not Given Insulin Detemir (Levemir Vial) 15 units SQ AM [facility] Last Admin: 11/09/16 06:32 Dose: 15 units Metformin HCl (Glucophage -) 500 mg PO BID@0700,1630 [facility] Last Admin: 11/09/16 06:32 Dose: 500 mg Methadone HCl 40 mg/ Methadone (HCl 30 mg) 70 mg PO DAILY@0600 [facility] Last Admin: 11/09/16 06:23 Dose: 70 mg Nystatin (Nystop Powder -) 1 applic TP DAILY [facility] Stop: 11/15/16 09:59 Last Admin: 11/09/16 09:11 Dose: 1 appful Ondansetron HCl (Zofran Odt -) 4 mg SL Q6H PRN PRN Reason: NAUSEA AND VOMITING Last Admin: 11/04/16 06:09 Dose: 4 mg Tramadol HCl (Ultram -) 50 mg PO Q8H PRN PRN Reason: PAIN - Objective Vital Signs: Vital Signs Temperature 97.0 F L 11/09/16 15:02 Pulse Rate 73 11/09/16 15:02 Respiratory Rate 20 11/09/16 15:02 Blood Pressure 107/63 11/09/16 15:02 O2 Sat by Pulse Oximetry (%) 95 11/08/16 21:00 Constitutional: Yes: Mild Distress Eyes: Yes: WNL HENT: Yes: WNL Neck: Yes: WNL Cardiovascular: Yes: WNL Respiratory: Yes: WNL Gastrointestinal: Yes: WNL Genitourinary: Yes: WNL Musculoskeletal: Yes: Muscle Weakness Extremities: Yes: Deformity Edema: No Peripheral Pulses WNL: Yes Integumentary: Yes: Pressure Ulcer, Rash Wound/Incision: Yes: Dressing Dry and Intact, Unapproximated Neurological: Yes: Loss of Sensation, Pre-Existing Deficit ...Motor Strength: LLE, RLE Psychiatric: Yes: Other Labs: CBC, BMP 11/03/16 07:25 11/03/16 07:25 Problem List - Problems (1) Cellulitis Code(s): L03.90 - CELLULITIS, UNSPECIFIED Qualifiers: Site of cellulitis: extremity Site of cellulitis of extremity: lower extremity (2) Hypoglycemia Code(s): E16.2 - HYPOGLYCEMIA, UNSPECIFIED (3) Dyspnea Code(s): R06.00 - DYSPNEA, UNSPECIFIED Qualifiers: Dyspnea type: unspecified Qualified Code(s): R06.00 - Dyspnea, unspecified (4) DMII (diabetes mellitus, type 2) Code(s): E11.9 - TYPE 2 DIABETES MELLITUS WITHOUT COMPLICATIONS Qualifiers: Diabetes mellitus complication status: with hypoglycemia (5) Hepatitis C Code(s): B19.20 - UNSPECIFIED VIRAL HEPATITIS C WITHOUT HEPATIC COMA Qualifiers: Viral hepatitis chronicity: chronic (6) Methadone dependence Code(s): F11.20 - OPIOID DEPENDENCE, UNCOMPLICATED (7) Depression (emotion) Code(s): F32.9 - MAJOR DEPRESSIVE DISORDER, SINGLE EPISODE, UNSPECIFIED Assessment/Plan ON DAPTOMYCIN IV DAY 6 OF 14 DEPRESSION STABLE NO SUICIDAL THOUGHTS OOB TO CHAIR CAN CHANGE TO BACTRIM PO OTHER OPTION IS BRING PATIENT IN FOR INFUSIONS DAILY VS HOME INFUSION WILL DISCUSS TOMORROW WITH CASE MANAGMENT
[2016-11-09] MEDS: DAPTOMYCIN 300 MG in SODIUM CHLORIDE 50 ML IVPB SCH (18:00)
[2016-11-09] MEDS ORDERED: INSULIN (NOVOLOG) ASPART 100 UNITS/ML 10ML VIAL ONE ×2 (21:54→22:23)
[2016-11-10] MEDS ORDERED: PIPERACILLIN/TAZOBACTAM 3.375 GM VIAL IVPB ONE ×2 (01:06→09:36)
[2016-11-10] MEDS: PIPERACILLIN/TAZOB 3.375 GM 3.375 GM in DEXTROSE 5%-WATER - 50 ML IVPB SCH ×2 (01:16→09:44)
[2016-11-10] MEDS ORDERED: INSULIN (NOVOLOG) ASPART 100 UNITS/ML 10ML VIAL ONE ×2 (05:52→06:28)
[2016-11-10] MEDS ORDERED: METHADONE HCL 10 MG TABLET ONE (05:59)
[2016-11-10] MEDS ORDERED: METHADONE HCL 40 MG DISPERSABLE TABLET ONE (06:00)
[2016-11-10] MEDS ORDERED: METHADONE 40 MG, METHADONE 30 MG PO ONE (06:00)
[2016-11-10] MEDS: metFORMIN HCL 500 MG TABLET (FP) PO SCH ×2 (06:07→16:55)
[2016-11-10] MEDS: glipiZIDE 5 MG TABLET (FP) PO SCH ×2 (06:08→16:55)
[2016-11-10] MEDS: INSULIN SLIDING SCALE (NOVOLOG) 1 VIAL SQ SCH ×4 (06:11→22:36)
[2016-11-10] MEDS: INSULIN DETEMIR 100 UNITS/ML MDV SQ SCH (06:11)
[2016-11-10] MEDS ORDERED: INSULIN DETEMIR 100 UNITS/ML MDV SQ ONE (06:29)
[2016-11-10] MEDS: AMINO ACIDS/PROTEIN HYDROLYS 30 ML LIQUID.PKT PO SCH ×2 (08:50→17:36)
[2016-11-10] MEDS ORDERED: DEXTROSE 5%-WATER - 50 ML IVPB ONE (09:37)
[2016-11-10] MEDS: clonazePAM 0.5 MG TABLET PO SCH ×2 (09:45→22:35)
--- NOTE | 2016-11-10 09:45 | PN ---
Progress Note, Physician History of Present Illness: 66 y/o M with a PMHx of diabetes, hepatitis C, liver CA, IV drug use (on Methadone) presents to the ED via EMS s/p fall. Patient reports he was at home when he had a mechanical fall. Neighbor heard him crying for help and called 911. Patient reports right hip pain. He reports for the past 3 days [employer] he has been ambulating with his walker and walking to his Methadone clinic. Patient is a poor historian. He does not know where his recent hip surgery was done. stats has had back pain since he got here, feels numbness behind his knees, states his hands are cold. ? BB issues. He had MRI ls spine ordered on 11/[address] Frazier but says that he declined this because of all the metal in his body. Upon further questioning, the metal is titanium, and he is also upset about multiple issues. - Current Medication List Current Medications: Active Medications Acetaminophen (Tylenol -) 650 mg PO Q8H PRN PRN Reason: FEVER OR PAIN Last Admin: 11/04/16 12:19 Dose: 650 mg Amino Acids (Prosource No Carb Liquid Pkt) 30 ml PO BID@0800,1730 [facility] Last Admin: 11/10/16 08:50 Dose: Not Given Bacitracin (Bacitracin -) 1 applic TP DAILY [facility] Last Admin: 11/09/16 09:11 Dose: 1 appful Clonazepam (Klonopin -) 0.5 mg PO BID [facility] Last Admin: 11/09/16 21:58 Dose: Not Given Collagenase (Santyl -) 1 applic TP DAILY [facility] Last Admin: 11/09/16 09:12 Dose: 1 applic Glipizide (Glucotrol -) 5 mg PO BID@0700,1630 [facility] Last Admin: 11/10/16 06:08 Dose: 5 mg IV Flush (Picc Line Flush) 8 ml IVPUSH PRN PRN PRN Reason: Protocol Last Admin: 11/09/16 09:12 Dose: 8 ml Daptomycin 300 mg/ Sodium (Chloride) 50 mls @ 100 mls/hr IVPB Q24H PRABHA PRN Reason: Protocol Last Admin: 11/09/16 18:00 Dose: 100 mls/hr Piperacillin Sod/Tazobactam (Sod 3.375 gm/ Dextrose) 50 mls @ 100 mls/hr IVPB Q8H-IV PRABHA PRN Reason: Protocol Last Admin: 11/10/16 01:16 Dose: Not Given Insulin Aspart (Novolog Vial Sliding Scale -) 1 vial SQ ACHS [facility] PRN Reason: Protocol Last Admin: 11/10/16 06:11 Dose: Not Given Insulin Detemir (Levemir Vial) 15 units SQ AM [facility] Last Admin: 11/10/16 06:11 Dose: Not Given Metformin HCl (Glucophage -) 500 mg PO BID@0700,1630 [facility] Last Admin: 11/10/16 06:07 Dose: 500 mg Nystatin (Nystop Powder -) 1 applic TP DAILY [facility] Stop: 11/15/16 09:59 Last Admin: 11/09/16 09:11 Dose: 1 appful Ondansetron HCl (Zofran Odt -) 4 mg SL Q6H PRN PRN Reason: NAUSEA AND VOMITING Last Admin: 11/04/16 06:09 Dose: 4 mg Tramadol HCl (Ultram -) 50 mg PO Q8H PRN PRN Reason: PAIN - Objective Vital Signs: Vital Signs Temperature 97.5 F L 11/10/16 05:45 Pulse Rate 69 11/10/16 05:45 Respiratory Rate 20 11/10/16 05:45 Blood Pressure 140/77 11/10/16 05:45 O2 Sat by Pulse Oximetry (%) 99 11/09/16 21:00 Neurological: Yes: Other (Level Of Consciousness: awake and alert, irritable, EOMI, no facial, motorr UE 5/5, LE with best effort 5/5, though limited by pain ; Left foot swollen; no sensory level, U reflexes 2+, Patellar (-), Achilles (-) , plantars down, gait-in pain, deferred )) Labs: CBC, BMP 11/03/16 07:25 11/03/16 07:25 - ....Imaging MRI: Pending (patient initially declined, but is now willing to get MRI LS spine ) Problem List - Problems (1) Lumbar radicular syndrome Code(s): M54.16 - RADICULOPATHY, LUMBAR REGION (2) Cellulitis Code(s): L03.90 - CELLULITIS, UNSPECIFIED Qualifiers: Site of cellulitis: extremity Site of cellulitis of extremity: lower extremity (3) DMII (diabetes mellitus, type 2) Code(s): E11.9 - TYPE 2 DIABETES MELLITUS WITHOUT COMPLICATIONS Qualifiers: Diabetes mellitus complication status: with hypoglycemia (4) Depression (emotion) Code(s): F32.9 - MAJOR DEPRESSIVE DISORDER, SINGLE EPISODE, UNSPECIFIED (5) Hepatitis C Code(s): B19.20 - UNSPECIFIED VIRAL HEPATITIS C WITHOUT HEPATIC COMA Qualifiers: Viral hepatitis chronicity: chronic (6) Leukocytosis Code(s): D72.829 - ELEVATED WHITE BLOOD CELL COUNT, UNSPECIFIED (7) Hypoglycemia Code(s): E16.2 - HYPOGLYCEMIA, UNSPECIFIED (8) Methadone dependence Code(s): F11.20 - OPIOID DEPENDENCE, UNCOMPLICATED Assessment/Plan 66 y/o M with a PMHx of diabetes, hepatitis C, liver CA, IV drug use (on Methadone) presents to the ED via EMS s/p fall. Patient reports he was at home when he had a mechanical fall. Neighbor heard him crying for help and called 911. Patient reports right hip pain. He reports for the past 3 days he has been ambulating with his walker and walking to his Methadone clinic. Patient is a poor historian. He does not know where his recent hip surgery was done. stats has had back pain since he got here, feels numbness behind his knees, states his hands are cold. ? BB issues. pain limited exam check MRI LS pine, ESR elevated though not outrageously so in diabetic. He is now willing to undergo MRI LS spine. F/U.
[2016-11-10] MEDS: BACITRACIN 15 GM TUBE TOPICAL OINTMENT TP SCH (09:46)
[2016-11-10] MEDS: ACETAMINOPHEN 325 MG TABLET (FP) PO PRN (10:39)
[2016-11-10] MEDS: COLLAGENASE CLOSTRIDIUM HIST. 30 GRAMS TUBE TP SCH (10:40)
[2016-11-10] MEDS: NYSTATIN POWDER 100,000 UNITS/GM - 15 GM TOPICAL POWDER TP SCH (10:40)
--- NOTE | 2016-11-10 14:37 | DS ---
Physical Examination Vital Signs: Vital Signs Temperature 97.7 F 11/10/16 14:27 Pulse Rate 60 11/10/16 14:27 Respiratory Rate 20 11/10/16 14:27 Blood Pressure 146/75 11/10/16 14:27 O2 Sat by Pulse Oximetry (%) 96 11/10/16 09:00 Findings/Remarks: PATIENT REFUSING LABS AND MEDICATIONS FOR PAST WEEK ON/OFF, MULTIPLE DISCUSSIONS AND PSYCHIATRY EVALS. PATIENT HAS FULL CAPACITY TO MAKE DECISIONS AND UNDERSTANDS THE RISK OF NOT COMPLETING HIS IV MEDICATIONS. HE WILL NEED TO FOLLOW UP OUTPATIENT WITH INFECTIOUS DISEASE AND VASC SURGERY FOR CHRONIC LEG WOUNDS. HIS LEG WOUNDS ARE CHRONIC AND THEY WILL NEED WEEKLY WOUND CENTER EVALS. Constitutional: Yes: Mild Distress Eyes: Yes: WNL HENT: Yes: WNL Neck: Yes: WNL Cardiovascular: Yes: WNL Respiratory: Yes: WNL Gastrointestinal: Yes: WNL Renal/: Yes: WNL Musculoskeletal: Yes: Muscle Weakness Extremities: Yes: Deformity Edema: Yes Edema: LLE: Trace, RLE: Trace Peripheral Pulses WNL: Yes Integumentary: Yes: Pressure Ulcer, Venous Stasis Changes Wound/Incision: Yes: Dressing Dry and Intact, Excoriated, Unapproximated Neurological: Yes: Pre-Existing Deficit, Unsteady Gait, Weakness ...Motor Strength: LLE, RLE Psychiatric: Yes: Agitated, Other Labs: CBC, BMP 11/03/16 07:25 11/03/16 07:25 Discharge Summary Reason For Visit: CELLULITIS,HYPOGLYCEMIA Current Active Problems Cellulitis (Acute) DMII (diabetes mellitus, type 2) (Acute) Depression (emotion) (Acute) Hepatitis C (Acute) Hypoglycemia (Acute) Leukocytosis (Acute) Lumbar radicular syndrome (Acute) Methadone dependence (Acute) Procedures: Principal: XRAYS Other Procedures: PICC LINE Hospital Course: ADMITTED FROM WOUND CARE CENTER FOR WORSENING WOUNDS TO LEGS, STARTED ON IV ABX AND WOUNDS TREATED AND CLEANED DAILY. PATIENT HAS BEEN COMPROMISING HIS CARE THE ENTIRE STAY WITH REFUSING LABS, MEDICATIONS, AND USING PROFANITY TOWARDS MYSELF AND STAFF. I DISCUSSED WITH ID DR KAISER, PATIENT NEEDS 8 MORE DAYS OF IV DAPSONE OR PO BACTRIM FOR 10 DAYS, WE WILL DC THE PICC LINE CHANGE TO PO BACTRIM BID FOR 10 DAYS AND REEVALUATE AT WOUND CENTER. PATIENT IS YEARNING TO GO HOME BECAUSE HE REPORTS THAT HE WILL LOSE HIS APARTMENT AND WANTS TO LEAVE NOW. HE UNDERSTANDS THE RISK OF NOT COMPLETING HIS COURSE OF DAPSONE, HOWEVER HIS WOUNDS TO THE LEGS ARE CHRONIC FOR MANY YEARS AND LIKELY WILL NEED MULTIPLE DEBRIDEMENTS AND CHRONIC WOUND CARE FOR LIFE. HE WILL F/U WITH ID AND VASC SX WOUND CENTER FOR HYPERBARIC CHAMBER AND WOUND DRESSING CHANGES Condition: Guarded - Instructions Diet, Activity, Other Instructions: diabetic diet wound care santyl daily WOUND CENTER WEEKLY DR DANA KAISER Disposition: VNS/HOME HEALTH CARE - Home Medications Comprehensive Discharge Medication List: Ambulatory Orders Clonazepam [Klonopin -] 0.5 mg PO BID 02/24/15 Insulin Aspart [Novolog] 0 unit SQ DAILY 02/24/15 Insulin Glargine,Hum.rec.anlog [Lantus (nf)] 10 units SQ AM 02/24/15 Acetaminophen [Tylenol .Regular Strength -] 650 mg PO Q8H PRN #0 tablet Amino Acids/Protein Hydrolys [Prosource No Carb Liquid Pkt] 30 ml PO BID@0800, 1730 packet 11/04/16 Bacitracin - [Bacitracin Topical Ointment -] 1 applic TP DAILY tube 11/04/16 Clonazepam [Klonopin -] 0.5 mg PO BID PRN #0 tablet MDD 2 11/04/16 Collagenase Clostridium Hist. [Santyl -] 1 applic TP DAILY tube 11/04/16 Glipizide [Glucotrol -] 5 mg PO BID@0700,1630 tablet 11/04/16 Insulin (Levemir) [Levemir Vial] 15 units SQ AM ml 11/04/16 Insulin Sliding Scale [Novolog Vial Sliding Scale -] 1 vial SQ ACHS units 11/04 Metformin HCl [Glucophage -] 500 mg PO BID@0700,1630 tablet 11/04/16 Methadone [Dolophine -] 70 mg PO DAILY@0600 tablet MDD 70 11/04/16 Methadone [Dolophine -] 70 mg PO DAILY@0600 tablet MDD 70 11/04/16 Nystatin Powder [Nystop Powder -] 1 applic TP DAILY applic 11/04/16 Picc Line Flush [Picc Line Flush -] 8 ml IVPUSH PRN PRN #0 ml 09/20/17 Piperacillin/Tazob 3.375 gm [Zosyn -] 3.375 gm IVPB Q8H-IV 14 Days 11/04/16 Vancomycin 1 Gram (Pre-Docked) [Vancomycin (Pre-Docked)] 250 ml IVPB BID #0 bag MDD 14 days 11/04/16
--- NOTE | 2016-11-10 16:47 | PN ---
Progress Note, Physician History of Present Illness: no new issues patient intermittently refusing medications patient very frustrated patient yelling at everyone - Current Medication List Current Medications: Active Medications Acetaminophen (Tylenol -) 650 mg PO Q8H PRN PRN Reason: FEVER OR PAIN Last Admin: 11/10/16 10:39 Dose: 650 mg Amino Acids (Prosource No Carb Liquid Pkt) 30 ml PO BID@0800,1730 [facility] Last Admin: 11/10/16 08:50 Dose: Not Given Bacitracin (Bacitracin -) 1 applic TP DAILY [facility] Last Admin: 11/10/16 09:46 Dose: 1 appful Clonazepam (Klonopin -) 0.5 mg PO BID [facility] Last Admin: 11/10/16 09:45 Dose: 0.5 mg Collagenase (Santyl -) 1 applic TP DAILY [facility] Last Admin: 11/10/16 10:40 Dose: 1 applic Glipizide (Glucotrol -) 5 mg PO BID@0700,1630 [facility] Last Admin: 11/10/16 06:08 Dose: 5 mg Insulin Aspart (Novolog Vial Sliding Scale -) 1 vial SQ ACHS [facility] PRN Reason: Protocol Last Admin: 11/10/16 11:59 Dose: Not Given Insulin Detemir (Levemir Vial) 15 units SQ AM [facility] Last Admin: 11/10/16 06:11 Dose: Not Given Metformin HCl (Glucophage -) 500 mg PO BID@0700,1630 [facility] Last Admin: 11/10/16 06:07 Dose: 500 mg Nystatin (Nystop Powder -) 1 applic TP DAILY [facility] Stop: 11/15/16 09:59 Last Admin: 11/10/16 10:40 Dose: 1 appful Ondansetron HCl (Zofran Odt -) 4 mg SL Q6H PRN PRN Reason: NAUSEA AND VOMITING Last Admin: 11/04/16 06:09 Dose: 4 mg Trimethoprim/Sulfamethoxazole (Bactrim Ds -) 1 each PO BID [facility] - Objective Vital Signs: Vital Signs Temperature 97.7 F 11/10/16 14:27 Pulse Rate 60 11/10/16 14:27 Respiratory Rate 20 11/10/16 14:27 Blood Pressure 146/75 11/10/16 14:27 O2 Sat by Pulse Oximetry (%) 96 11/10/16 09:00 Constitutional: Yes: No Distress, Calm Cardiovascular: Yes: Regular Rate and Rhythm Respiratory: Yes: Regular Gastrointestinal: Yes: Normal Bowel Sounds, Soft Musculoskeletal: Yes: Other Extremities: Yes: Other Neurological: Yes: Alert, Oriented Psychiatric: Yes: Alert, Oriented Labs: CBC, BMP 11/03/16 07:25 11/03/16 07:25 Assessment/Plan Problem List - Problems (1) Cellulitis Code(s): L03.90 - CELLULITIS, UNSPECIFIED Qualifiers: Site of cellulitis: extremity Site of cellulitis of extremity: lower extremity (2) DMII (diabetes mellitus, type 2) Code(s): E11.9 - TYPE 2 DIABETES MELLITUS WITHOUT COMPLICATIONS Qualifiers: Diabetes mellitus complication status: with hypoglycemia (3) Hepatitis C Code(s): B19.20 - UNSPECIFIED VIRAL HEPATITIS C WITHOUT HEPATIC COMA Qualifiers: Viral hepatitis chronicity: chronic (4) Methadone dependence Code(s): F11.20 - OPIOID DEPENDENCE, UNCOMPLICATED (5) Leukocytosis Code(s): D72.829 - ELEVATED WHITE BLOOD CELL COUNT, UNSPECIFIED plan patient refusing everything being discharge
[2016-11-10] MEDS: SULFAMETHOXAZOLE/TRIMETHOPRIM 800MG/160MG D.S. TABLET PO SCH (22:35)
[2016-11-11] MEDS ORDERED: METHADONE HCL 10 MG TABLET PO ONE (06:00)
[2016-11-11] MEDS: metFORMIN HCL 500 MG TABLET (FP) PO SCH (06:27)
[2016-11-11] MEDS: INSULIN SLIDING SCALE (NOVOLOG) 1 VIAL SQ SCH ×2 (06:28→11:37)
[2016-11-11] MEDS: INSULIN DETEMIR 100 UNITS/ML MDV SQ SCH (06:28)
[2016-11-11] MEDS: glipiZIDE 5 MG TABLET (FP) PO SCH (06:28)
[2016-11-11] MEDS: AMINO ACIDS/PROTEIN HYDROLYS 30 ML LIQUID.PKT PO SCH (08:09)
[2016-11-11] MEDS: clonazePAM 0.5 MG TABLET PO SCH (09:03)
[2016-11-11] MEDS: BACITRACIN 15 GM TUBE TOPICAL OINTMENT TP SCH (09:13)
[2016-11-11] MEDS: NYSTATIN POWDER 100,000 UNITS/GM - 15 GM TOPICAL POWDER TP SCH (09:13)
[2016-11-11] MEDS: COLLAGENASE CLOSTRIDIUM HIST. 30 GRAMS TUBE TP SCH (09:13)
[2016-11-11] MEDS: SULFAMETHOXAZOLE/TRIMETHOPRIM 800MG/160MG D.S. TABLET PO SCH (09:13)
[2016-11-11 12:28] VITALS: BP 128/87; PULSE 74; TEMP 98
== END 2016-11-11 15:52 | disposition home health service (06) | DRG 602 ==
LOC: JER 20:58 → JERBED 10-31 01:08 → J7W 10-31 03:00
PROVIDERS: ADMIT Family Medicine; ATTEND Family Medicine
PROC: 02HV33Z Insertion of Infusion Device into Superior Vena Cava, Percutaneous Approach (ICD-10-PCS; principal; 2016-11-04)
PROC: B548ZZA Ultrasonography of Superior Vena Cava, Guidance (ICD-10-PCS; 2016-11-04)
DX: L03.312 Cellulitis of back [any part except buttock and flank] (principal); E43 Unspecified severe protein-calorie malnutrition; C22.7 Other specified carcinomas of liver; F11.20 Opioid dependence, uncomplicated; B37.89 Other sites of candidiasis; Z68.1 Body mass index [BMI] 19.9 or less, adult; E11.649 Type 2 diabetes mellitus with hypoglycemia without coma; B19.20 Unspecified viral hepatitis C without hepatic coma; F17.210 Nicotine dependence, cigarettes, uncomplicated; R25.1 Tremor, unspecified; B18.2 Chronic viral hepatitis C; Z79.4 Long term (current) use of insulin; Z89.422 Acquired absence of other left toe(s); R62.7 Adult failure to thrive; F32.9 Major depressive disorder, single episode, unspecified; M54.16 Radiculopathy, lumbar region; L89.159 Pressure ulcer of sacral region, unspecified stage
CPT/HCPCS: 36415; 36569; 72100-TC; 73660-TC; 76775-TC; 76856-TC; 77001-TC; 80048; 80053; 80061; 81003; 81015; 82009; 82140; 83036; 83721; 85025; 85027; 85651; 87040; 87070; 87077; 87086; 87186; 87205; 93005; 93010; 93970-TC; 97116-GP; 97161-GP; 99282-25; C1751; G0480; J0878